=== PATIENT | female | born 1985 | race Caucasian/White ===

== ENCOUNTER → 2016-10-15 | Outpatient (REF) | payer OTHER | END | disposition home or self-care (01) | LOC: M LAB REF 10:07 | PROVIDERS: ATTEND Physician Assistant Medical | DX: Z11.59 Encounter for screening for other viral diseases (principal) ==

== ENCOUNTER → 2016-10-30 | Outpatient (REF) | payer OTHER | LOC: M SFHCPLAZ 08:57 | PROVIDERS: ATTEND Nurse Practitioner Family | DX: R19.5 Other fecal abnormalities (principal) ==

== ENCOUNTER → 2016-11-01 | Outpatient (REF) | payer OTHER | LOC: M SFHCWAGY 12:05 | PROVIDERS: ATTEND Nurse Practitioner Women's Health | DX: Z12.4 Encounter for screening for malignant neoplasm of cervix (principal) ==

== ENCOUNTER → 2016-11-06 | Outpatient (REF) | payer OTHER ==
[2016-11-06 12:56] LABS: ALBUMIN 4.2 GM/DL (3.2-5.2); ALBUMIN/GLOBULIN RATIO 1.35 (1.00-1.93); ALKALINE PHOSPHATASE 64 U/L (45-117); ALT/SGPT 29 U/L (12-78); ANION GAP 10 MEQ/L (8-16); AST/SGOT 17 U/L (15-37); BILIRUBIN,TOTAL 0.7 MG/DL (0.2-1.0); BLOOD UREA NITROGEN 8 MG/DL (7-18); CALCIUM LEVEL 9.6 MG/DL (8.5-10.1); CARBON DIOXIDE LEVEL 28 MEQ/L (21-32); CHLORIDE LEVEL 105 MEQ/L (98-107); CREATININE FOR GFR 0.68 MG/DL (0.55-1.02); GLOMERULAR FILTRATION RATE > 60.0 (>60); GLUCOSE, FASTING 92 MG/DL (70-105); POTASSIUM SERUM 4.4 MEQ/L (3.5-5.1); SODIUM LEVEL 143 MEQ/L (136-145); TOTAL PROTEIN 7.3 GM/DL (6.4-8.2)
[2016-11-06 13:03] LABS: BASO % 0.6 % (0.0-1.0); EOS % 0.6 % (0.0-3.0); LARGE UNSTAINED CELL # 0.1 K/mm3 (0.0-0.4); LARGE UNSTAINED CELL % 1.5 % (0.0-4.0); LYMPH # 1.7 K/mm3 (1.5-4.5); LYMPH % 16.8 % (24.0-44.0); MEAN CORPUSCULAR HEMOGLOBIN 29.3 pg (27.0-33.0); MEAN CORPUSCULAR HGB CONC 33.2 g/dl (32.0-36.5); MEAN CORPUSCULAR VOLUME 88.4 fl (80.0-96.0); MONO # 0.7 K/mm3 (0.0-0.8); MONO % 7.1 % (0.0-5.0); NEUTROPHILS # 6.9 K/mm3 (1.8-7.7); NEUTROPHILS % 73.5 % (36.0-66.0); PLATELET COUNT, AUTOMATED 281 k/mm3 (150-450); RED CELL DISTRIBUTION WIDTH 13.2 % (11.5-14.5); WHITE BLOOD COUNT 9.4 K/mm3 (4.0-10.0)
[2016-11-06 14:24] LABS: ERYTHROCYTE SEDIMENTATION RATE 11 mm/hr (0-20)
== END ==
LOC: M SFHCPLAZ 09:06
PROVIDERS: ATTEND Nurse Practitioner Family
DX: M25.511 Pain in right shoulder (principal)

== ENCOUNTER → 2016-11-10 | Outpatient (REF) | payer OTHER ==
[2016-11-10 11:30] LABS: INR 1.08
== END ==
LOC: M SFHCPLAZ 07:53
PROVIDERS: ATTEND Nurse Practitioner Family
DX: M25.50 Pain in unspecified joint (principal)

== ENCOUNTER 2016-11-24 21:43 | Emergency (ER) | payer OTHER ==
[2016-11-24] MEDS ORDERED: ASPIRIN 81 MG CHEW TABLET As Ordered ONE (22:06)
[2016-11-24 22:23] LABS: BASO # 0.1 K/mm3 (0.0-0.2); BASO % 0.8 % (0.0-1.0); EOS # 0.1 K/mm3 (0.0-0.50); LARGE UNSTAINED CELL # 0.2 K/mm3 (0.0-0.4); LARGE UNSTAINED CELL % 2.2 % (0.0-4.0); LYMPH # 2.3 K/mm3 (1.5-4.5); LYMPH % 21.4 % (24.0-44.0); MEAN CORPUSCULAR HEMOGLOBIN 28.8 pg (27.0-33.0); MEAN CORPUSCULAR HGB CONC 34.3 g/dl (32.0-36.5); MONO # 0.5 K/mm3 (0.0-0.8); MONO % 4.8 % (0.0-5.0); NEUTROPHILS # 7.3 K/mm3 (1.8-7.7); NEUTROPHILS % 69.8 % (36.0-66.0); PLATELET COUNT, AUTOMATED 309 k/mm3 (150-450); RED CELL DISTRIBUTION WIDTH 12.3 % (11.5-14.5); WHITE BLOOD COUNT 10.5 K/mm3 (4.0-10.0)
[2016-11-24 22:27] LABS: INR 1.05
[2016-11-24 22:36] LABS: CONTROL LINE HCG INT CTR LINE PRESENT
[2016-11-24 22:45] LABS: ANION GAP 10 MEQ/L (8-16); BLOOD UREA NITROGEN 8 MG/DL (7-18); CALCIUM LEVEL 8.9 MG/DL (8.5-10.1); CARBON DIOXIDE LEVEL 24 MEQ/L (21-32); CHLORIDE LEVEL 108 MEQ/L (98-107); CREATININE FOR GFR 0.72 MG/DL (0.55-1.02); GLOMERULAR FILTRATION RATE > 60.0 (>60); GLUCOSE, FASTING 101 MG/DL (70-105); MAGNESIUM LEVEL 1.8 MG/DL (1.8-2.4); POTASSIUM SERUM 3.2 MEQ/L (3.5-5.1); SODIUM LEVEL 142 MEQ/L (136-145); T UPTAKE 35 % (30-39); THYROXINE (T4) 9.9 UG/DL (4.5-12.0)
--- NOTE | 2016-11-24 23:54 | EDDOCDS ---
Nurse's Notes [facility] Name: Jennifer Bowie Age: 31 yrs Sex: Female : 1985 Arrival Date: 11/24/2016 Time: 21:43 Bed 13 Private MD: Eliceo Valadez MD Diagnosis: Palpitations Presentation: 11/24 21:48 Presenting complaint: Patient states: Dizziness, SOB with feeling like heart was jo3 racing. Started at approximately 2000. Happened 2 days ago as well. Pt adds that she has been having a dull chest pain intermittently. Adult Sepsis Screening: The patient does not have new or worsening altered mentation. Patient's respiratory rate is less than 22. Systolic blood pressure is greater than 100. Patient has a qSOFA score of 0- Negative Sepsis Screen. Suicide/Homicide risk assessment- the patient denies having any suicidal and/or homicidal ideations and does not present with any other emotional, behavioral or mental health complaints. Status: Patient is not a electronic field service engineer or dependent. Transition of care: patient was not received from another setting of care. 21:48 Method Of Arrival: Walkin/Carried/Asstd jo3 22:04 Acuity: DASHA Level 3 mlc Triage Assessment: 21:51 General: Appears in no apparent distress, Behavior is appropriate for age, cooperative, jo3 pleasant. Pain: Location: left, anterior chest, left neck Pain currently is 5 out of 10 on a pain scale. HIV screening NA for this visit Offered previously. 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 none - PMHx: none; - PSHx: none; - Social history: Smoking status: Patient states was never smoker of tobacco. No barriers to communication noted, The patient speaks fluent Polish, Speaks appropriately for age. - Family history: Not pertinent. - : The pt / caregiver states he / she is not on anticoagulants. Home medication list is obtained from the patient. - Exposure Risk Screening:: None identified. Screenin:17 Screening information is obtained from the patient. Fall risk: No risks identified. tm5 Assistance ADL's: requires no assistance with activities of daily living. Abuse/DV Screen: The patient / caregiver reports he/she is: not in a situation that causes fear, pain or injury. Nutritional screening: No deficits noted. Advance Directives: There is no active DNR order. home support is adequate. Assessment: 22:17 General: Appears in no apparent distress, Behavior is appropriate for age, cooperative. tm5 Pain: Location: neck Pain currently is 8 out of 10 on a pain scale. Quality of pain is described as aching, sharp. Neurological: Level of Consciousness is awake, alert, Oriented to person, place, time. Cardiovascular: Rhythm is regular. Cardiovascular: Chest pain is denied. Respiratory: Airway is patent Respiratory effort is even, unlabored, Respiratory pattern is regular, symmetrical, Breath sounds are clear bilaterally. Derm: Skin is pink, warm & dry. 23:50 Reassessment: Patient appears in no apparent distress at this time. Patient states tm5 feeling better. Patient states symptoms have improved. Cardiovascular: Rhythm is regular. Vital Signs: 21:45 BP 145 / 72; Pulse 104; Resp 18; Temp 97; Pulse Ox 100% ; Weight 58.97 kg; Height 5 ft. [facility] 6 in. (167.64 cm); Pain 5/10; 22:02 BP 121 / 62 (auto/); tm5 22:03 Pulse 78 MON; Pulse Ox 100% ; tm5 22:32 BP 118 / 63 (auto/); tm5 22:33 Pulse 70 MON; Pulse Ox 100% on R/A; tm5 23:02 BP 117 / 88 (auto/); tm5 23:02 Pulse 82 MON; Pulse Ox 99% on R/A; Pain 0/10; tm5 23:32 BP 117 / 66 (auto/); tm5 23:33 Pulse 66 MON; Resp 18; Temp 98.3(O); Pulse Ox 100% on R/A; Pain 0/10; tm5 21:45 Body Mass Index 20.98 (58.97 kg, 167.64 cm) [facility] Vitals: 21:45 Log In Time: November 24, 2016 at 21:45. [facility] ED Course: 21:44 Patient visited by Kirstie Cano, Special Tax Auditor. [facility] 21:44 Patient moved to Wait[facility] 21:45 Eliceo Valadez is Private Physician. [facility] 21:45 Patient moved to [facility] 21:52 Patient visited by Edilia Khoury RN. jo3 21:52 Edilia Anne,KEDAR is Primary Nurse. jo3 21:52 [facility] ke 21:52 Patient visited by Ford Bianchi FNP. ke 21:52 Patient visited by Ford Bianchi FNP. ke 21:52 Patient moved to 13 jo3 22:04 Triage Initiated mlc 22:15 ETOH Sent. tm5 22:15 HCG,Serum Qualitative Sent. tm5 22:15 Thyroid Profile Sent. tm5 22:15 Magnesium Level Sent. tm5 22:15 Basic Metabolic Profile Sent. tm5 22:15 CBC with Diff Sent. tm5 22:15 Cardiac Injury Profile Sent. tm5 22:15 Prothrombin Time Profile\E\INR Sent. tm5 22:15 Troponin Sent. tm5 22:17 The patient / caregiver is instructed regarding the plan of care and ED course. Cardiac tm5 monitor on. Pulse ox on. NIBP on. 22:17 Inserted saline lock: 18 gauge in left antecubital area and blood collected. The tm5 patient tolerated the procedure well. Labs drawn. (by ED staff). Sent per order to lab. EKG done. (by ED staff). Reviewed by Ford POWELL. 22:17 No procedures done that require assistance. tm5 22:23 Patient visited by Ford Bianchi FNP. ke 22:55 Patient visited by Ford Bianchi FNP. ke 23:03 Primary Nurse role handed off by Edilia Anne,KEDAR jb5 23:10 Patient visited by Melony Landeros RN. tm5 23:11 Patient name changed from Jennifer\S\\S\Gonyaw\S\ to Jennifer\S\Alizah\S\Gonyaw. EDMS 23:26 Eliceo Valadez is Referral Physician. ke 23:26 Michael Laurent MD is Referral Physician. ke 23:33 Discontinued lock intact, bleeding controlled, pressure dressing applied, No tm5 redness/swelling at site. 23:50 Patient visited by Melony Landeros RN. tm5 Administered Medications: 22:09 Drug: Aspirin 324 mg [aspirin 81 mg chewable tablet (4 tabs)] Route: PO; mlc 23:28 Follow up: Response: No Adverse Reaction tm5 22:16 Drug: NS 0.9% 1000 ml [sodium chloride 0.9 % intravenous solution] Route: IV; Rate: 100 tm5 mL/hr; Site: left antecubital; 23:29 Follow up: IV Status: Infusion discontinued; IV Intake: 200ml tm5 Intake: 23:29 IV: 200.00ml; Total: 200.00ml. tm5 Order Results: Lab Order: Basic Metabolic Profile; DAVID'M 11/24/16 22:13 Test: GLUCOSE, FASTING; Value: 101; Range: 70-105; Units: MG/DL; Status: F Test: BLOOD UREA NITROGEN; Value: 8; Range: 7-18; Units: MG/DL; Status: F Test: CREATININE FOR GFR; Value: 0.72; Range: 0.55-1.02; Units: MG/DL; Status: F Test: SODIUM LEVEL; Range: 136-145; Units: MEQ/L; Status: I Test: POTASSIUM SERUM; Range: 3.5-5.1; Units: MEQ/L; Status: I Test: CHLORIDE LEVEL; Range: 98-107; Units: MEQ/L; Status: I Test: CARBON DIOXIDE LEVEL; Range: 21-32; Units: MEQ/L; Status: I Test: ANION GAP; Range: 8-16; Units: MEQ/L; Status: I Test: CALCIUM LEVEL; Range: 8.5-10.1; Units: MG/DL; Status: I Test: GLOMERULAR FILTRATION RATE; Value: > 60.0; Range: >60; Status: F Test: SODIUM LEVEL; Value: 142; Range: 136-145; Units: MEQ/L; Status: F Test: POTASSIUM SERUM; Value: 3.2; Range: 3.5-5.1; Abnormal: Below low normal; Units: MEQ/L; Status: F Test: CHLORIDE LEVEL; Value: 108; Range: 98-107; Abnormal: Above high normal; Units: MEQ/L; Status: F Test: CARBON DIOXIDE LEVEL; Value: 24; Range: 21-32; Units: MEQ/L; Status: F Test: ANION GAP; Value: 10; Range: 8-16; Units: MEQ/L; Status: F Test: CALCIUM LEVEL; Value: 8.9; Range: 8.5-10.1; Units: MG/DL; Status: F Test Note: ; Units are mL/min/1.73 m2 Chronic Kidney Disease Staging per NKF: Stage I & II GFR >=60 Normal to Mildly Decreased Stage III GFR 30-59 Moderately Decreased Stage IV GFR 15-29 Severely Decreased Stage V GFR <15 Very Little GFR Left ESRD GFR <15 on TECHNICAL WRITING LEAD/MGR Lab Order: CBC with Diff; DAVID'Ray 11/24/16 22:13 Test: WHITE BLOOD COUNT; Value: 10.5; Range: 4.0-10.0; Abnormal: Above high normal; Units: K/mm3; Status: F Test: RED BLOOD COUNT; Value: 4.61; Range: 4.00-5.40; Units: M/mm3; Status: F Test: HEMOGLOBIN; Value: 13.3; Range: 12.0-16.0; Units: g/dl; Status: F Test: HEMATOCRIT; Value: 38.7; Range: 36.0-47.0; Units: %; Status: F Test: MEAN CORPUSCULAR VOLUME; Value: 84.0; Range: 80.0-96.0; Units: fl; Status: F Test: MEAN CORPUSCULAR HEMOGLOBIN; Value: 28.8; Range: 27.0-33.0; Units: pg; Status: F Test: MEAN CORPUSCULAR HGB CONC; Value: 34.3; Range: 32.0-36.5; Units: g/dl; Status: F Test: RED CELL DISTRIBUTION WIDTH; Value: 12.3; Range: 11.5-14.5; Units: %; Status: F Test: PLATELET COUNT, AUTOMATED; Value: 309; Range: 150-450; Units: k/mm3; Status: F Test: NEUTROPHILS %; Value: 69.8; Range: 36.0-66.0; Abnormal: Above high normal; Units: %; Status: F Test: LYMPH %; Value: 21.4; Range: 24.0-44.0; Abnormal: Below low normal; Units: %; Status: F Test: MONO %; Value: 4.8; Range: 0.0-5.0; Units: %; Status: F Test: EOS %; Value: 1.0; Range: 0.0-3.0; Units: %; Status: F Test: BASO %; Value: 0.8; Range: 0.0-1.0; Units: %; Status: F Test: LARGE UNSTAINED CELL %; Value: 2.2; Range: 0.0-4.0; Units: %; Status: F Test: NEUTROPHILS #; Value: 7.3; Range: 1.8-7.7; Units: K/mm3; Status: F Test: LYMPH #; Value: 2.3; Range: 1.5-4.5; Units: K/mm3; Status: F Test: MONO #; Value: 0.5; Range: 0.0-0.8; Units: K/mm3; Status: F Test: EOS #; Value: 0.1; Range: 0.0-0.50; Units: K/mm3; Status: F Test: BASO #; Value: 0.1; Range: 0.0-0.2; Units: K/mm3; Status: F Test: LARGE UNSTAINED CELL #; Value: 0.2; Range: 0.0-0.4; Units: K/mm3; Status: F Lab Order: Cardiac Injury Profile; SPEC' 11/24/16 22:13 Test: CPK CREATINE PHOSPHOKINASE; Value: 55; Range: 26-192; Units: U/L; Status: F Test: CK-MB VALUE MASS; Value: 1.0; Range: 0.0-3.6; Units: NG/ML; Status: F Test: MB/CK RELATIVE INDEX; Value: 1.81; Range: < OR =4; Status: F Test Note: ; DIAGNOSIS CRITERIA MMB ng/ml Relative Index (RI) NON-AMI < or = 5 N/A WISEMAN ZONE > 5 < or = 4 AMI > 5 > 4 Lab Order: Prothrombin Time Profile\E\INR; SPEC'M 11/24/16 22:13 Test: PROTHROMBIN TIME; Value: 13.8; Range: 12.3-14.5; Units: SECONDS; Status: F Test: INR; Value: 1.05; Status: F Test Note: ; THERAPUTIC HUMAN INR VALUES INDICATIONS NORMAL RANGES PROPHYLAXIS/TREATMENT OF: VENOUS THROMBOSIS 2.0-3.0 PULMONARY EMBOLISM 2.0-3.0 PREVENTION OF SYSTEMIC EMBOLISM FROM: TISSUE HEART VALVES 2.0-3.0 ACUTE MYOCARDIAL INFARCTION 2.0-3.0 VALVULAR HEART DISEASE 2.0-3.0 ATRIAL FIBRILLATION 2.0-3.0 MECHANICAL VALVES(HIGH RISK) 2.5-3.5 RECURRENT MYOCARDIAL INFARCTION 2.5-3.5 Lab Order: Troponin; [facility] 11/24/16 22:13 Test: TROPONIN I; Value: < 0.02; Range: < 0.10; Units: NG/ML; Status: F Test Note: ; Troponin I Reference Interval for [employer] LOCI: 99th Percentile= 0.00-0.045 ng/ml Risk Stratification: <= 0.10 ng/ml Decreased Risk for Adverse Clinical Events. 0.10-1.50 ng/ml Increased Risk for Adverse Clinical Events. Evaluation of additional criterion and/or repeat testing in 2-6 hours is suggested to rule out myocardial damage. >= 1.50 ng/ml Indicative of Myocardial Injury. Lab Order: Magnesium Level; [facility] 11/24/16 22:13 Test: MAGNESIUM LEVEL; Value: 1.8; Range: 1.8-2.4; Units: MG/DL; Status: F Lab Order: Thyroid Profile; [facility] 11/24/16 22:13 Test: T UPTAKE; Value: 35; Range: 30-39; Units: %; Status: F Test: THYROXINE (T4); Value: 9.9; Range: 4.5-12.0; Units: UG/DL; Status: F Test: FREE THYROXINE INDEX; Value: 3.5; Range: 1.3-4.8; Units: %; Status: F Test: THYROID STIMULATING HORMONE; Value: 2.840; Range: 0.358-3.740; Units: uIU/ML; Status: F Lab Order: HCG,Serum Qualitative; [facility] 11/24/16 22:13 Test: HCG, SERUM QUALITATIVE; Value: NEGATIVE; Range: NEGATIVE; Status: F Lab Order: ETOH; [facility] 11/24/16 22:13 Test: ETHYL ALCOHOL (ETHANOL); Value: 0.003; Range: 0.000-0.010; Units: %; Status: F Outcome: 23:26 Discharge ordered by Provider. ke 23:33 Discharge Assessment: Patient awake, alert and oriented x 3. No cognitive and/or tm5 functional deficits noted. Patient verbalized understanding of disposition instructions. patient administered narcotics - no. The following High Risk Discharge criteria are identified: None. Discharged to home ambulatory, with significant other. Condition: good Condition: stable Condition: improved. Discharge instructions given to patient, Instructed on discharge instructions, follow up and referral plans. medication usage, Demonstrated understanding of instructions, medications, Pt was receptive of discharge instructions/ teaching. Prescriptions given X 1. No special radiology studies were completed. Property :Personal belongings accompany Pt. 23:52 Patient left the ED. tm5 Signatures: Dispatcher [employer] EDMS Ford Bianchi, BRICK CARRIER BRICK CARRIER Cee Thorne, SHIP YARD ELECTRICAL PERSON SHIP YARD ELECTRICAL PERSON jb5 Edilia Khoury,RN RN Kirstie Tran, Special Tax Auditor Unit Estefania Moore,RN RN Melony Iverson,RN RN tm5 [email or web address]
--- NOTE | 2016-11-24 23:54 | EDDOCDS ---
Physician Documentation [facility] Name: Jennifer Bowie Age: 31 yrs Sex: Female : 1985 Arrival Date: 11/24/2016 Time: 21:43 Bed 13 Private MD: Eliceo Valadez MD Disposition: 11/24/16 23:26 Discharged to Home/Self Care. Impression: Palpitations. - Condition is Stable. - Discharge Instructions: Palpitations. - Medication Reconciliation, Local Pharmacy Hours form. - Follow up: Eliceo Valadez; When: 1 week; Reason: Recheck today's complaints, Continuance of care. Follow up: Michael Laurent MD; When: Call to arrange an appointment; Reason: Further diagnostic work-up, Continuance of care. - Problem is an ongoing problem. - Symptoms are unchanged. Historical: - Allergies: Flagyljoint pain; - Home Meds: 1. none - PMHx: none; - PSHx: none; - Social history: Smoking status: Patient states was never smoker of tobacco. No barriers to communication noted, The patient speaks fluent Lithuanian, Speaks appropriately for age. - Family history: Not pertinent. - : The pt / caregiver states he / she is not on anticoagulants. Home medication list is obtained from the patient. - Exposure Risk Screening:: None identified. 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 6 in. (167.64 cm); Pain 5/10; 22:02 BP 121 / 62 (auto/); tm5 22:03 Pulse 78 MON; Pulse Ox 100% ; tm5 22:32 BP 118 / 63 (auto/); tm5 22:33 Pulse 70 MON; Pulse Ox 100% on R/A; tm5 23:02 BP 117 / 88 (auto/); tm5 23:02 Pulse 82 MON; Pulse Ox 99% on R/A; Pain 0/10; tm5 23:32 BP 117 / 66 (auto/); tm5 23:33 Pulse 66 MON; Resp 18; Temp 98.3(O); Pulse Ox 100% on R/A; Pain 0/10; tm5 21:45 Body Mass Index 20.98 (58.97 kg, 167.64 cm) [facility] MDM: 21:52 ECG WITH READING ER PHYS+CARDIAG ordered. EDMS 22:00 Aspirin Chewable Tablet 324 mg PO once ordered. ke 22:00 NS 0.9% 1000 ml IV at 100 mL/hr continuous ordered. ke 22:00 Metal Spray Operator/Pulse Ox/q 30 min VS ordered. ke 22:00 IV Saline Lock ordered. ke 22:00 Rhythm Strip to chart ordered. ke 22:00 Undress patient appropriately for examination ordered. ke 22:00 Basic Metabolic Profile Ordered. EDMS 22:00 CBC with Diff Ordered. EDMS 22:00 Cardiac Injury Profile Ordered. EDMS 22:00 Prothrombin Time Profile\E\INR Ordered. EDMS 22:00 Troponin Ordered. EDMS 22:00 Magnesium Level Ordered. EDMS 22:00 Thyroid Profile Ordered. EDMS 22:00 HCG,Serum Qualitative Ordered. EDMS 22:00 Urinalysis Ordered. EDMS 22:00 Urine Toxicology Ordered. EDMS 22:00 ETOH Ordered. EDMS 22:02 Chest, 2 View (pa\E\lat) Ordered. EDMS 22:55 Basic Metabolic Profile Reviewed. ke 22:55 CBC with Diff Reviewed. ke 22:55 Cardiac Injury Profile Reviewed. ke 22:55 Prothrombin Time Profile\E\INR Reviewed. ke 22:55 Troponin Reviewed. ke 22:55 Magnesium Level Reviewed. ke 22:55 Thyroid Profile Reviewed. ke 22:55 HCG,Serum Qualitative Reviewed. ke 22:55 ETOH Reviewed. ke 23:01 Financial registration complete. kf3 Administered Medications: 22:09 Drug: Aspirin 324 mg [aspirin 81 mg chewable tablet (4 tabs)] Route: PO; mlc 23:28 Follow up: Response: No Adverse Reaction tm5 22:16 Drug: NS 0.9% 1000 ml [sodium chloride 0.9 % intravenous solution] Route: IV; Rate: 100 tm5 mL/hr; Site: left antecubital; 23:29 Follow up: IV Status: Infusion discontinued; IV Intake: 200ml tm5 Signatures: Dispatcher [employer] EDMS Ford Bianchi, ANALOG IC DESIGN ARCHITECT ANALOG IC DESIGN ARCHITECT Edilia YorkRN RN jo3 Juventino Martinez, Reg Reg kf3 Melony Landeros RN RN tm5 Estefania Martinez RN mlc FLORD
--- NOTE | 2016-11-25 07:14 | REP ---
Clinical: Chest pain . Comparison: 03/02/2016 . Technique: PA and lateral. Findings: The mediastinum and cardiac silhouette are normal. The lung ontiveros are clear and without acute consolidation, effusion, or pneumothorax. The skeletal structures are intact and normal. Impression: 1. No acute cardiopulmonary process. Signed by Ravi Caba MD 11/25/2016 07:06 A
--- NOTE | 2016-11-25 07:26 | ECGEPIP ---
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
--- NOTE | 2016-11-27 00:54 | EDDOCDS ---
Physician Documentation [facility] Name: Jennifer Bowie Age: 31 yrs Sex: Female : 1985 Arrival Date: 11/24/2016 Time: 21:43 Bed 13 Private MD: Eliceo Valadez MD Disposition: 11/24/16 23:26 Discharged to Home/Self Care. Impression: Palpitations. - Condition is Stable. - Discharge Instructions: Palpitations. - Medication Reconciliation, Local Pharmacy Hours form. - Follow up: Eliceo Valadez; When: 1 week; Reason: Recheck today's complaints, Continuance of care. Follow up: Michael Laurent MD; When: Call to arrange an appointment; Reason: Further diagnostic work-up, Continuance of care. - Problem is an ongoing problem. - Symptoms are unchanged. Historical: - Allergies: Flagyljoint pain; - Home Meds: 1. none - PMHx: none; - PSHx: none; - Social history: Smoking status: Patient states was never smoker of tobacco. No barriers to communication noted, The patient speaks fluent Gabonese, Speaks appropriately for age. - Family history: Not pertinent. - : The pt / caregiver states he / she is not on anticoagulants. Home medication list is obtained from the patient. - Exposure Risk Screening:: None identified. 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 6 in. (167.64 cm); Pain 5/10; 22:02 BP 121 / 62 (auto/); tm5 22:03 Pulse 78 MON; Pulse Ox 100% ; tm5 22:32 BP 118 / 63 (auto/); tm5 22:33 Pulse 70 MON; Pulse Ox 100% on R/A; tm5 23:02 BP 117 / 88 (auto/); tm5 23:02 Pulse 82 MON; Pulse Ox 99% on R/A; Pain 0/10; tm5 23:32 BP 117 / 66 (auto/); tm5 23:33 Pulse 66 MON; Resp 18; Temp 98.3(O); Pulse Ox 100% on R/A; Pain 0/10; tm5 21:45 Body Mass Index 20.98 (58.97 kg, 167.64 cm) [facility] MDM: 21:52 ECG WITH READING ER PHYS+CARDIAG ordered. EDMS 22:00 Aspirin Chewable Tablet 324 mg PO once ordered. ke 22:00 NS 0.9% 1000 ml IV at 100 mL/hr continuous ordered. ke 22:00 Escrow Agent/Pulse Ox/q 30 min VS ordered. ke 22:00 IV Saline Lock ordered. ke 22:00 Rhythm Strip to chart ordered. ke 22:00 Undress patient appropriately for examination ordered. ke 22:00 Basic Metabolic Profile Ordered. EDMS 22:00 CBC with Diff Ordered. EDMS 22:00 Cardiac Injury Profile Ordered. EDMS 22:00 Prothrombin Time Profile\E\INR Ordered. EDMS 22:00 Troponin Ordered. EDMS 22:00 Magnesium Level Ordered. EDMS 22:00 Thyroid Profile Ordered. EDMS 22:00 HCG,Serum Qualitative Ordered. EDMS 22:00 Urinalysis Ordered. EDMS 22:00 Urine Toxicology Ordered. EDMS 22:00 ETOH Ordered. EDMS 22:02 Chest, 2 View (pa\E\lat) Ordered. EDMS 22:55 Basic Metabolic Profile Reviewed. ke 22:55 CBC with Diff Reviewed. ke 22:55 Cardiac Injury Profile Reviewed. ke 22:55 Prothrombin Time Profile\E\INR Reviewed. ke 22:55 Troponin Reviewed. ke 22:55 Magnesium Level Reviewed. ke 22:55 Thyroid Profile Reviewed. ke 22:55 HCG,Serum Qualitative Reviewed. ke 22:55 ETOH Reviewed. ke 23:01 Financial registration complete. kf3 11/25 08:40 T-Sheet-- Draft Copy was scanned into Ritot and attached to record. [facility] 11/26 21:16 ECG/EKG was scanned into Ritot and attached to record. klr Administered Medications: 11/24 22:09 Drug: Aspirin 324 mg [aspirin 81 mg chewable tablet (4 tabs)] Route: PO; [facility] 23:28 Follow up: Response: No Adverse Reaction tm5 22:16 Drug: NS 0.9% 1000 ml [sodium chloride 0.9 % intravenous solution] Route: IV; Rate: 100 tm5 mL/hr; Site: left antecubital; 23:29 Follow up: IV Status: Infusion discontinued; IV Intake: 200ml tm5 Signatures: Dispatcher [employer] EDFord Yin, TOOL MAKER TOOL MAKER Edilia YorkRN RN jo3 Juventino Martinez, Reg Reg kf3 Mikey, Alecia Campbell, Melony Torres RN RN tm5 Estefania Martinez RN [facility] The chart was reviewed and I authenticate all verbal orders and agree with the evaluation and treatment provided.Attachments: 11/25 08:40 T-Sheet-- Draft Copy 11/26 21:16 ECG/EKG klr Chart Complete MTDD
--- NOTE | 2016-11-27 00:54 | EDDOCDS ---
Physician Documentation [employer] Name: Jennifer Bowie Age: 31 yrs Sex: Female : 1985 Arrival Date: 11/24/2016 Time: 21:43 Bed 13 Private MD: Eliceo Valadez MD Disposition: 11/24/16 23:26 Discharged to Home/Self Care. Impression: Palpitations. - Condition is Stable. - Discharge Instructions: Palpitations. - Medication Reconciliation, Local Pharmacy Hours form. - Follow up: Eliceo Valadez; When: 1 week; Reason: Recheck today's complaints, Continuance of care. Follow up: Michael Laurent MD; When: Call to arrange an appointment; Reason: Further diagnostic work-up, Continuance of care. - Problem is an ongoing problem. - Symptoms are unchanged. Historical: - Allergies: Flagyljoint pain; - Home Meds: 1. none - PMHx: none; - PSHx: none; - Social history: Smoking status: Patient states was never smoker of tobacco. No barriers to communication noted, The patient speaks fluent Armenian, Speaks appropriately for age. - Family history: Not pertinent. - : The pt / caregiver states he / she is not on anticoagulants. Home medication list is obtained from the patient. - Exposure Risk Screening:: None identified. TERMINOLOGIST: 11/24 21:51 LMP 11/08/2016 jo3 Vital Signs: 21:45 BP 145 / 72; Pulse 104; Resp 18; Temp 97; Pulse Ox 100% ; Weight 58.97 kg / 130.01 lbs; jlm Height 5 ft. 6 in. (167.64 cm); Pain 5/10; 22:02 BP 121 / 62 (auto/); tm5 22:03 Pulse 78 MON; Pulse Ox 100% ; tm5 22:32 BP 118 / 63 (auto/); tm5 22:33 Pulse 70 MON; Pulse Ox 100% on R/A; tm5 23:02 BP 117 / 88 (auto/); tm5 23:02 Pulse 82 MON; Pulse Ox 99% on R/A; Pain 0/10; tm5 23:32 BP 117 / 66 (auto/); tm5 23:33 Pulse 66 MON; Resp 18; Temp 98.3(O); Pulse Ox 100% on R/A; Pain 0/10; tm5 21:45 Body Mass Index 20.98 (58.97 kg, 167.64 cm) [facility] MDM: 21:52 ECG WITH READING ER PHYS+CARDIAG ordered. EDMS 22:00 Aspirin Chewable Tablet 324 mg PO once ordered. ke 22:00 NS 0.9% 1000 ml IV at 100 mL/hr continuous ordered. ke 22:00 License Inspector/Pulse Ox/q 30 min VS ordered. ke 22:00 IV Saline Lock ordered. ke 22:00 Rhythm Strip to chart ordered. ke 22:00 Undress patient appropriately for examination ordered. ke 22:00 Basic Metabolic Profile Ordered. EDMS 22:00 CBC with Diff Ordered. EDMS 22:00 Cardiac Injury Profile Ordered. EDMS 22:00 Prothrombin Time Profile\E\INR Ordered. EDMS 22:00 Troponin Ordered. EDMS 22:00 Magnesium Level Ordered. EDMS 22:00 Thyroid Profile Ordered. EDMS 22:00 HCG,Serum Qualitative Ordered. EDMS 22:00 Urinalysis Ordered. EDMS 22:00 Urine Toxicology Ordered. EDMS 22:00 ETOH Ordered. EDMS 22:02 Chest, 2 View (pa\E\lat) Ordered. EDMS 22:55 Basic Metabolic Profile Reviewed. ke 22:55 CBC with Diff Reviewed. ke 22:55 Cardiac Injury Profile Reviewed. ke 22:55 Prothrombin Time Profile\E\INR Reviewed. ke 22:55 Troponin Reviewed. ke 22:55 Magnesium Level Reviewed. ke 22:55 Thyroid Profile Reviewed. ke 22:55 HCG,Serum Qualitative Reviewed. ke 22:55 ETOH Reviewed. ke 23:01 Financial registration complete. kf3 11/25 08:40 T-Sheet-- Draft Copy was scanned into [employer] and attached to record. [facility] 11/26 21:16 ECG/EKG was scanned into [employer] and attached to record. klr Administered Medications: 11/24 22:09 Drug: Aspirin 324 mg [aspirin 81 mg chewable tablet (4 tabs)] Route: PO; [facility] 23:28 Follow up: Response: No Adverse Reaction tm5 22:16 Drug: NS 0.9% 1000 ml [sodium chloride 0.9 % intravenous solution] Route: IV; Rate: 100 tm5 mL/hr; Site: left antecubital; 23:29 Follow up: IV Status: Infusion discontinued; IV Intake: 200ml tm5 Signatures: Dispatcher [employer] EDFord Yin, AIRCRAFT MACHINIST HELPER AIRCRAFT MACHINIST HELPER Edilia YorkRN RN jo3 Juventino Martinez, Reg Reg kf3 Mikey, Alecia Campbell, Melony Torres RN RN tm5 Estefania Martinez RN [facility] The chart was reviewed and I authenticate all verbal orders and agree with the evaluation and treatment provided.Attachments: 11/25 08:40 T-Sheet-- Draft Copy 11/26 21:16 ECG/EKG klr Chart Complete MTDD
--- NOTE | 2016-11-27 00:54 | EDDOCDS ---
Nurse's Notes [facility] Name: Alfredo Bowie Age: 31 yrs Sex: Female : 1985 Arrival Date: 11/24/2016 Time: 21:43 Bed 13 Private MD: Eliceo Valadez MD Diagnosis: Palpitations Presentation: 11/24 21:48 Presenting complaint: Patient states: Dizziness, SOB with feeling like heart was jo3 racing. Started at approximately 2000. Happened 2 days ago as well. Pt adds that she has been having a dull chest pain intermittently. Adult Sepsis Screening: The patient does not have new or worsening altered mentation. Patient's respiratory rate is less than 22. Systolic blood pressure is greater than 100. Patient has a qSOFA score of 0- Negative Sepsis Screen. Suicide/Homicide risk assessment- the patient denies having any suicidal and/or homicidal ideations and does not present with any other emotional, behavioral or mental health complaints. Status: Patient is not a pharmacy services representative or dependent. Transition of care: patient was not received from another setting of care. 21:48 Method Of Arrival: Walkin/Carried/Asstd jo3 22:04 Acuity: DASHA Level 3 mlc Triage Assessment: 21:51 General: Appears in no apparent distress, Behavior is appropriate for age, cooperative, jo3 pleasant. Pain: Location: left, anterior chest, left neck Pain currently is 5 out of 10 on a pain scale. HIV screening NA for this visit Offered previously. ENVIRONMENT FRIENDLY LANDSCAPE DESIGNER: 21:51 LMP 11/08/2016 jo3 Historical: - Allergies: Flagyljoint pain; - Home Meds: 1. none - PMHx: none; - PSHx: none; - Social history: Smoking status: Patient states was never smoker of tobacco. No barriers to communication noted, The patient speaks fluent Urdu, Speaks appropriately for age. - Family history: Not pertinent. - : The pt / caregiver states he / she is not on anticoagulants. Home medication list is obtained from the patient. - Exposure Risk Screening:: None identified. Screenin:17 Screening information is obtained from the patient. Fall risk: No risks identified. tm5 Assistance ADL's: requires no assistance with activities of daily living. Abuse/DV Screen: The patient / caregiver reports he/she is: not in a situation that causes fear, pain or injury. Nutritional screening: No deficits noted. Advance Directives: There is no active DNR order. home support is adequate. Assessment: 22:17 General: Appears in no apparent distress, Behavior is appropriate for age, cooperative. tm5 Pain: Location: neck Pain currently is 8 out of 10 on a pain scale. Quality of pain is described as aching, sharp. Neurological: Level of Consciousness is awake, alert, Oriented to person, place, time. Cardiovascular: Rhythm is regular. Cardiovascular: Chest pain is denied. Respiratory: Airway is patent Respiratory effort is even, unlabored, Respiratory pattern is regular, symmetrical, Breath sounds are clear bilaterally. Derm: Skin is pink, warm & dry. 23:50 Reassessment: Patient appears in no apparent distress at this time. Patient states tm5 feeling better. Patient states symptoms have improved. Cardiovascular: Rhythm is regular. Vital Signs: 21:45 BP 145 / 72; Pulse 104; Resp 18; Temp 97; Pulse Ox 100% ; Weight 58.97 kg; Height 5 ft. [facility] 6 in. (167.64 cm); Pain 5/10; 22:02 BP 121 / 62 (auto/); tm5 22:03 Pulse 78 MON; Pulse Ox 100% ; tm5 22:32 BP 118 / 63 (auto/); tm5 22:33 Pulse 70 MON; Pulse Ox 100% on R/A; tm5 23:02 BP 117 / 88 (auto/); tm5 23:02 Pulse 82 MON; Pulse Ox 99% on R/A; Pain 0/10; tm5 23:32 BP 117 / 66 (auto/); tm5 23:33 Pulse 66 MON; Resp 18; Temp 98.3(O); Pulse Ox 100% on R/A; Pain 0/10; tm5 21:45 Body Mass Index 20.98 (58.97 kg, 167.64 cm) [facility] Vitals: 21:45 Log In Time: November 24, 2016 at 21:45. [facility] ED Course: 21:44 Patient visited by Kirstie Cano, Tenant Selector. [facility] 21:44 Patient moved to Waiting [facility] 21:45 Eliceo Valadez is Private Physician. [facility] 21:45 Patient moved to Pre RCE [facility] 21:52 Patient visited by Edilia Khoury RN. jo3 21:52 Edilia Anne,KEDAR is Primary Nurse. jo3 21:52 [facility] ke 21:52 Patient visited by Ford Bianchi FNP. ke 21:52 Patient visited by Ford Bianchi FNP. ke 21:52 Patient moved to 13 jo3 22:04 Triage Initiated mlc 22:15 ETOH Sent. tm5 22:15 HCG,Serum Qualitative Sent. tm5 22:15 Thyroid Profile Sent. tm5 22:15 Magnesium Level Sent. tm5 22:15 Basic Metabolic Profile Sent. tm5 22:15 CBC with Diff Sent. tm5 22:15 Cardiac Injury Profile Sent. tm5 22:15 Prothrombin Time Profile\E\INR Sent. tm5 22:15 Troponin Sent. tm5 22:17 The patient / caregiver is instructed regarding the plan of care and ED course. Cardiac tm5 monitor on. Pulse ox on. NIBP on. 22:17 Inserted saline lock: 18 gauge in left antecubital area and blood collected. The tm5 patient tolerated the procedure well. Labs drawn. (by ED staff). Sent per order to lab. EKG done. (by ED staff). Reviewed by Ford POWELL. 22:17 No procedures done that require assistance. tm5 22:23 Patient visited by Ford Bianchi FNP. ke 22:55 Patient visited by Ford Bianchi FNP. ke 23:03 Primary Nurse role handed off by Edilia Anne RN jb5 23:10 Patient visited by Melony Landeros RN. tm5 23:11 Patient name changed from Alfredo\S\\S\Gonyaw\S\ to Alfredo\S\Alizah\S\Gonyaw. EDMS 23:26 Eliceo Valadez is Referral Physician. ke 23:26 Michael Laurent MD is Referral Physician. ke 23:33 Discontinued lock intact, bleeding controlled, pressure dressing applied, No tm5 redness/swelling at site. 23:50 Patient visited by Melony Landeros RN. tm5 11/25 07:31 EKG-ADULT Returned. EDMS 07:34 Chest, 2 View (pa\E\lat) Returned. EDMS 08:40 T-Sheet-- Draft Copy was scanned into [employer] and attached to record. [facility] 11/26 21:16 ECG/EKG was scanned into [employer] and attached to record. klr Administered Medications: 11/24 22:09 Drug: Aspirin 324 mg [aspirin 81 mg chewable tablet (4 tabs)] Route: PO; [facility] 23:28 Follow up: Response: No Adverse Reaction tm5 22:16 Drug: NS 0.9% 1000 ml [sodium chloride 0.9 % intravenous solution] Route: IV; Rate: 100 tm5 mL/hr; Site: left antecubital; 23:29 Follow up: IV Status: Infusion discontinued; IV Intake: 200ml tm5 Intake: 23:29 IV: 200.00ml; Total: 200.00ml. tm5 Order Results: Lab Order: Basic Metabolic Profile; [facility]'Ray 11/24/16 22:13 Test: GLUCOSE, FASTING; Value: 101; Range: 70-105; Units: MG/DL; Status: F Test: BLOOD UREA NITROGEN; Value: 8; Range: 7-18; Units: MG/DL; Status: F Test: CREATININE FOR GFR; Value: 0.72; Range: 0.55-1.02; Units: MG/DL; Status: F Test: SODIUM LEVEL; Range: 136-145; Units: MEQ/L; Status: I Test: POTASSIUM SERUM; Range: 3.5-5.1; Units: MEQ/L; Status: I Test: CHLORIDE LEVEL; Range: 98-107; Units: MEQ/L; Status: I Test: CARBON DIOXIDE LEVEL; Range: 21-32; Units: MEQ/L; Status: I Test: ANION GAP; Range: 8-16; Units: MEQ/L; Status: I Test: CALCIUM LEVEL; Range: 8.5-10.1; Units: MG/DL; Status: I Test: GLOMERULAR FILTRATION RATE; Value: > 60.0; Range: >60; Status: F Test: SODIUM LEVEL; Value: 142; Range: 136-145; Units: MEQ/L; Status: F Test: POTASSIUM SERUM; Value: 3.2; Range: 3.5-5.1; Abnormal: Below low normal; Units: MEQ/L; Status: F Test: CHLORIDE LEVEL; Value: 108; Range: 98-107; Abnormal: Above high normal; Units: MEQ/L; Status: F Test: CARBON DIOXIDE LEVEL; Value: 24; Range: 21-32; Units: MEQ/L; Status: F Test: ANION GAP; Value: 10; Range: 8-16; Units: MEQ/L; Status: F Test: CALCIUM LEVEL; Value: 8.9; Range: 8.5-10.1; Units: MG/DL; Status: F Test Note: ; Units are mL/min/1.73 m2 Chronic Kidney Disease Staging per NKF: Stage I & II GFR >=60 Normal to Mildly Decreased Stage III GFR 30-59 Moderately Decreased Stage IV GFR 15-29 Severely Decreased Stage V GFR <15 Very Little GFR Left ESRD GFR <15 on BELL CLERK Lab Order: CBC with Diff; SPEC'M 11/24/16 22:13 Test: WHITE BLOOD COUNT; Value: 10.5; Range: 4.0-10.0; Abnormal: Above high normal; Units: K/mm3; Status: F Test: RED BLOOD COUNT; Value: 4.61; Range: 4.00-5.40; Units: M/mm3; Status: F Test: HEMOGLOBIN; Value: 13.3; Range: 12.0-16.0; Units: g/dl; Status: F Test: HEMATOCRIT; Value: 38.7; Range: 36.0-47.0; Units: %; Status: F Test: MEAN CORPUSCULAR VOLUME; Value: 84.0; Range: 80.0-96.0; Units: fl; Status: F Test: MEAN CORPUSCULAR HEMOGLOBIN; Value: 28.8; Range: 27.0-33.0; Units: pg; Status: F Test: MEAN CORPUSCULAR HGB CONC; Value: 34.3; Range: 32.0-36.5; Units: g/dl; Status: F Test: RED CELL DISTRIBUTION WIDTH; Value: 12.3; Range: 11.5-14.5; Units: %; Status: F Test: PLATELET COUNT, AUTOMATED; Value: 309; Range: 150-450; Units: k/mm3; Status: F Test: NEUTROPHILS %; Value: 69.8; Range: 36.0-66.0; Abnormal: Above high normal; Units: %; Status: F Test: LYMPH %; Value: 21.4; Range: 24.0-44.0; Abnormal: Below low normal; Units: %; Status: F Test: MONO %; Value: 4.8; Range: 0.0-5.0; Units: %; Status: F Test: EOS %; Value: 1.0; Range: 0.0-3.0; Units: %; Status: F Test: BASO %; Value: 0.8; Range: 0.0-1.0; Units: %; Status: F Test: LARGE UNSTAINED CELL %; Value: 2.2; Range: 0.0-4.0; Units: %; Status: F Test: NEUTROPHILS #; Value: 7.3; Range: 1.8-7.7; Units: K/mm3; Status: F Test: LYMPH #; Value: 2.3; Range: 1.5-4.5; Units: K/mm3; Status: F Test: MONO #; Value: 0.5; Range: 0.0-0.8; Units: K/mm3; Status: F Test: EOS #; Value: 0.1; Range: 0.0-0.50; Units: K/mm3; Status: F Test: BASO #; Value: 0.1; Range: 0.0-0.2; Units: K/mm3; Status: F Test: LARGE UNSTAINED CELL #; Value: 0.2; Range: 0.0-0.4; Units: K/mm3; Status: F Lab Order: Cardiac Injury Profile; SPEC' 11/24/16 22:13 Test: CPK CREATINE PHOSPHOKINASE; Value: 55; Range: 26-192; Units: U/L; Status: F Test: CK-MB VALUE MASS; Value: 1.0; Range: 0.0-3.6; Units: NG/ML; Status: F Test: MB/CK RELATIVE INDEX; Value: 1.81; Range: < OR =4; Status: F Test Note: ; DIAGNOSIS CRITERIA MMB ng/ml Relative Index (RI) NON-AMI < or = 5 N/A WISEMAN ZONE > 5 < or = 4 AMI > 5 > 4 Lab Order: Prothrombin Time Profile\E\INR; SPEC'M 11/24/16 22:13 Test: PROTHROMBIN TIME; Value: 13.8; Range: 12.3-14.5; Units: SECONDS; Status: F Test: INR; Value: 1.05; Status: F Test Note: ; THERAPUTIC HUMAN INR VALUES INDICATIONS NORMAL RANGES PROPHYLAXIS/TREATMENT OF: VENOUS THROMBOSIS 2.0-3.0 PULMONARY EMBOLISM 2.0-3.0 PREVENTION OF SYSTEMIC EMBOLISM FROM: TISSUE HEART VALVES 2.0-3.0 ACUTE MYOCARDIAL INFARCTION 2.0-3.0 VALVULAR HEART DISEASE 2.0-3.0 ATRIAL FIBRILLATION 2.0-3.0 MECHANICAL VALVES(HIGH RISK) 2.5-3.5 RECURRENT MYOCARDIAL INFARCTION 2.5-3.5 Lab Order: Troponin; 11/24/16 22:13 Test: TROPONIN I; Value: < 0.02; Range: < 0.10; Units: NG/ML; Status: F Test Note: ; Troponin I Reference Interval for [employer] LOCI: 99th Percentile= 0.00-0.045 ng/ml Risk Stratification: <= 0.10 ng/ml Decreased Risk for Adverse Clinical Events. 0.10-1.50 ng/ml Increased Risk for Adverse Clinical Events. Evaluation of additional criterion and/or repeat testing in 2-6 hours is suggested to rule out myocardial damage. >= 1.50 ng/ml Indicative of Myocardial Injury. Lab Order: Magnesium Level; 11/24/16 22:13 Test: MAGNESIUM LEVEL; Value: 1.8; Range: 1.8-2.4; Units: MG/DL; Status: F Lab Order: Thyroid Profile; [facility]11/[facility] 22:13 Test: T UPTAKE; Value: 35; Range: 30-39; Units: %; Status: F Test: THYROXINE (T4); Value: 9.9; Range: 4.5-12.0; Units: UG/DL; Status: F Test: FREE THYROXINE INDEX; Value: 3.5; Range: 1.3-4.8; Units: %; Status: F Test: THYROID STIMULATING HORMONE; Value: 2.840; Range: 0.358-3.740; Units: uIU/ML; Status: F Lab Order: HCG,Serum Qualitative; 11/24/16 22:13 Test: HCG, SERUM QUALITATIVE; Value: NEGATIVE; Range: NEGATIVE; Status: F Lab Order: ETOH; /24/17 22:13 Test: ETHYL ALCOHOL (ETHANOL); Value: 0.003; Range: 0.000-0.010; Units: %; Status: F Radiology Order: EKG-ADULT Test: EKG-ADULT REASON FOR EXAMINATION: Chest Pain; Stationary ECG Study; [facility] - ED; ; Test Date: 2016-11-24; Pat Name: ALFREDO BOWIE Department:; Room: -; Gender: F Mailroom Manager: zora; : 1985 Requested By: TONYA BELL; Order Number: [id number] Reading MD: Eliel Bradley; Measurements; Intervals [place]; Rate: 79 P: 47; DC: 152 QRS: 18; QRSD: 88 T: 40; QT: 379; QTc: 435; Interpretive Statements; SINUS RHYTHM; ; Electronically Signed On 11-25-2016 7:26:29 EST by Eliel Bradley; Radiology Order: Chest, 2 View (pa\E\lat) Test: Chest, 2 View (pa\E\lat) REASON FOR EXAMINATION: Chest Pain; Clinical: Chest pain .; ; Comparison: 03/02/2016 .; ; Technique: PA and lateral.; ; Findings:; The mediastinum and cardiac silhouette are normal. The lung ontiveros are clear and; without acute consolidation, effusion, or pneumothorax. The skeletal structures; are intact and normal.; ; Impression:; 1. No acute cardiopulmonary process.; ; ; Signed by; Ravi Caba MD 11/25/2016 07:06 A; Outcome: 23:26 Discharge ordered by Provider. ke 23:33 Discharge Assessment: Patient awake, alert and oriented x 3. No cognitive and/or tm5 functional deficits noted. Patient verbalized understanding of disposition instructions. patient administered narcotics - no. The following High Risk Discharge criteria are identified: None. Discharged to home ambulatory, with significant other. Condition: good Condition: stable Condition: improved. Discharge instructions given to patient, Instructed on discharge instructions, follow up and referral plans. medication usage, Demonstrated understanding of instructions, medications, Pt was receptive of discharge instructions/ teaching. Prescriptions given X 1. No special radiology studies were completed. Property :Personal belongings accompany Pt. 23:52 Patient left the ED. tm5 Signatures: Dispatcher [employer] EDMS Elsner, Ford, ELECTROCARDIOGRAM TECHNICIAN ELECTROCARDIOGRAM TECHNICIAN miesha Steinberg, Cee, VOTATOR MACHINE OPERATOR VOTATOR MACHINE OPERATOR jb5 Edilia Khoury,RN RN jo3 Kirstie Cano, Tenant Selector Unit Estefania Moore,RN RN [facility] Mikey, Alecia Campbell, Melony Torres,RN RN tm5 Chart Complete MTDD
--- NOTE | 2016-11-27 17:11 | EDDOCDS ---
Nurse's Notes [facility] Name: Alfredo Bowie Age: 31 yrs Sex: Female : 1985 Arrival Date: 11/24/2016 Time: 21:43 Bed 13 Private MD: Eliceo Valadez MD Diagnosis: Palpitations Presentation: 11/24 21:48 Presenting complaint: Patient states: Dizziness, SOB with feeling like heart was jo3 racing. Started at approximately 2000. Happened 2 days ago as well. Pt adds that she has been having a dull chest pain intermittently. Adult Sepsis Screening: The patient does not have new or worsening altered mentation. Patient's respiratory rate is less than 22. Systolic blood pressure is greater than 100. Patient has a qSOFA score of 0- Negative Sepsis Screen. Suicide/Homicide risk assessment- the patient denies having any suicidal and/or homicidal ideations and does not present with any other emotional, behavioral or mental health complaints. Status: Patient is not a field service representative or dependent. Transition of care: patient was not received from another setting of care. 21:48 Method Of Arrival: Walkin/Carried/Asstd jo3 22:04 Acuity: DASHA Level 3 mlc Triage Assessment: 21:51 General: Appears in no apparent distress, Behavior is appropriate for age, cooperative, jo3 pleasant. Pain: Location: left, anterior chest, left neck Pain currently is 5 out of 10 on a pain scale. HIV screening NA for this visit Offered previously. 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 none - PMHx: none; - PSHx: none; - Social history: Smoking status: Patient states was never smoker of tobacco. No barriers to communication noted, The patient speaks fluent German, Speaks appropriately for age. - Family history: Not pertinent. - : The pt / caregiver states he / she is not on anticoagulants. Home medication list is obtained from the patient. - Exposure Risk Screening:: None identified. Screenin:17 Screening information is obtained from the patient. Fall risk: No risks identified. tm5 Assistance ADL's: requires no assistance with activities of daily living. Abuse/DV Screen: The patient / caregiver reports he/she is: not in a situation that causes fear, pain or injury. Nutritional screening: No deficits noted. Advance Directives: There is no active DNR order. home support is adequate. Assessment: 22:17 General: Appears in no apparent distress, Behavior is appropriate for age, cooperative. tm5 Pain: Location: neck Pain currently is 8 out of 10 on a pain scale. Quality of pain is described as aching, sharp. Neurological: Level of Consciousness is awake, alert, Oriented to person, place, time. Cardiovascular: Rhythm is regular. Cardiovascular: Chest pain is denied. Respiratory: Airway is patent Respiratory effort is even, unlabored, Respiratory pattern is regular, symmetrical, Breath sounds are clear bilaterally. Derm: Skin is pink, warm & dry. 23:50 Reassessment: Patient appears in no apparent distress at this time. Patient states tm5 feeling better. Patient states symptoms have improved. Cardiovascular: Rhythm is regular. Vital Signs: 21:45 BP 145 / 72; Pulse 104; Resp 18; Temp 97; Pulse Ox 100% ; Weight 58.97 kg; Height 5 ft. [facility] 6 in. (167.64 cm); Pain 5/10; 22:02 BP 121 / 62 (auto/); tm5 22:03 Pulse 78 MON; Pulse Ox 100% ; tm5 22:32 BP 118 / 63 (auto/); tm5 22:33 Pulse 70 MON; Pulse Ox 100% on R/A; tm5 23:02 BP 117 / 88 (auto/); tm5 23:02 Pulse 82 MON; Pulse Ox 99% on R/A; Pain 0/10; tm5 23:32 BP 117 / 66 (auto/); tm5 23:33 Pulse 66 MON; Resp 18; Temp 98.3(O); Pulse Ox 100% on R/A; Pain 0/10; tm5 21:45 Body Mass Index 20.98 (58.97 kg, 167.64 cm) [facility] Vitals: 21:45 Log In Time: November 24, 2016 at 21:45. [facility] ED Course: 21:44 Patient visited by Kirstie Cano, Geochemistry Teacher. [facility] 21:44 Patient moved to Waiting [facility] 21:45 Eliceo Valadez is Private Physician. [facility] 21:45 Patient moved to Pre RCE [facility] 21:52 Patient visited by Edilia Khoury RN. jo3 21:52 Edilia Anne,KEDAR is Primary Nurse. jo3 21:52 Ford Bianchi FNP [facility]. ke 21:52 Patient visited by Ford Bianchi FNP. ke 21:52 Patient visited by Ford Bianchi FNP. ke 21:52 Patient moved to 13 jo3 22:04 Triage Initiated mlc 22:15 ETOH Sent. tm5 22:15 HCG,Serum Qualitative Sent. tm5 22:15 Thyroid Profile Sent. tm5 22:15 Magnesium Level Sent. tm5 22:15 Basic Metabolic Profile Sent. tm5 22:15 CBC with Diff Sent. tm5 22:15 Cardiac Injury Profile Sent. tm5 22:15 Prothrombin Time Profile\E\INR Sent. tm5 22:15 Troponin Sent. tm5 22:17 The patient / caregiver is instructed regarding the plan of care and ED course. Cardiac tm5 monitor on. Pulse ox on. NIBP on. 22:17 Inserted saline lock: 18 gauge in left antecubital area and blood collected. The tm5 patient tolerated the procedure well. Labs drawn. (by ED staff). Sent per order to lab. EKG done. (by ED staff). Reviewed by Ford POWELL. 22:17 No procedures done that require assistance. tm5 22:23 Patient visited by Ford Bianchi FNP. ke 22:55 Patient visited by Ford Bianchi FNP. ke 23:03 Primary Nurse role handed off by Edilia Anne RN jb5 23:10 Patient visited by Melony Landeros RN. tm5 23:11 Patient name changed from Alfredo\S\\S\Gonyaw\S\ to Alfredo\S\Alizah\S\Gonyaw. EDMS 23:26 Eliceo Valadez is Referral Physician. ke 23:26 Michael Laurent MD is Referral Physician. ke 23:33 Discontinued lock intact, bleeding controlled, pressure dressing applied, No tm5 redness/swelling at site. 23:50 Patient visited by Melony Landeros RN. tm5 11/25 07:31 EKG-ADULT Returned. EDMS 07:34 Chest, 2 View (pa\E\lat) Returned. EDMS 08:40 T-Sheet-- Draft Copy was scanned into [employer] and attached to record. [facility] 11/26 21:16 ECG/EKG was scanned into [employer] and attached to record. klr Administered Medications: 11/24 22:09 Drug: Aspirin 324 mg [aspirin 81 mg chewable tablet (4 tabs)] Route: PO; [facility] [place] 23:28 Follow up: Response: No Adverse Reaction tm5 22:16 Drug: NS 0.9% 1000 ml [sodium chloride 0.9 % intravenous solution] Route: IV; Rate: 100 tm5 mL/hr; Site: left antecubital; 23:29 Follow up: IV Status: Infusion discontinued; IV Intake: 200ml tm5 Intake: 23:29 IV: 200.00ml; Total: 200.00ml. tm5 Order Results: Lab Order: Basic Metabolic Profile; [facility]'Ray 11/24/16 22:13 Test: GLUCOSE, FASTING; Value: 101; Range: 70-105; Units: MG/DL; Status: F Test: BLOOD UREA NITROGEN; Value: 8; Range: 7-18; Units: MG/DL; Status: F Test: CREATININE FOR GFR; Value: 0.72; Range: 0.55-1.02; Units: MG/DL; Status: F Test: SODIUM LEVEL; Range: 136-145; Units: MEQ/L; Status: I Test: POTASSIUM SERUM; Range: 3.5-5.1; Units: MEQ/L; Status: I Test: CHLORIDE LEVEL; Range: 98-107; Units: MEQ/L; Status: I Test: CARBON DIOXIDE LEVEL; Range: 21-32; Units: MEQ/L; Status: I Test: ANION GAP; Range: 8-16; Units: MEQ/L; Status: I Test: CALCIUM LEVEL; Range: 8.5-10.1; Units: MG/DL; Status: I Test: GLOMERULAR FILTRATION RATE; Value: > 60.0; Range: >60; Status: F Test: SODIUM LEVEL; Value: 142; Range: 136-145; Units: MEQ/L; Status: F Test: POTASSIUM SERUM; Value: 3.2; Range: 3.5-5.1; Abnormal: Below low normal; Units: MEQ/L; Status: F Test: CHLORIDE LEVEL; Value: 108; Range: 98-107; Abnormal: Above high normal; Units: MEQ/L; Status: F Test: CARBON DIOXIDE LEVEL; Value: 24; Range: 21-32; Units: MEQ/L; Status: F Test: ANION GAP; Value: 10; Range: 8-16; Units: MEQ/L; Status: F Test: CALCIUM LEVEL; Value: 8.9; Range: 8.5-10.1; Units: MG/DL; Status: F Test Note: ; Units are mL/min/1.73 m2 Chronic Kidney Disease Staging per NKF: Stage I & II GFR >=60 Normal to Mildly Decreased Stage III GFR 30-59 Moderately Decreased Stage IV GFR 15-29 Severely Decreased Stage V GFR <15 Very Little GFR Left ESRD GFR <15 on [employer] Lab Order: CBC with Diff; SPEC'M 11/24/16 22:13 Test: WHITE BLOOD COUNT; Value: 10.5; Range: 4.0-10.0; Abnormal: Above high normal; Units: K/mm3; Status: F Test: RED BLOOD COUNT; Value: 4.61; Range: 4.00-5.40; Units: M/mm3; Status: F Test: HEMOGLOBIN; Value: 13.3; Range: 12.0-16.0; Units: g/dl; Status: F Test: HEMATOCRIT; Value: 38.7; Range: 36.0-47.0; Units: %; Status: F Test: MEAN CORPUSCULAR VOLUME; Value: 84.0; Range: 80.0-96.0; Units: fl; Status: F Test: MEAN CORPUSCULAR HEMOGLOBIN; Value: 28.8; Range: 27.0-33.0; Units: pg; Status: F Test: MEAN CORPUSCULAR HGB CONC; Value: 34.3; Range: 32.0-36.5; Units: g/dl; Status: F Test: RED CELL DISTRIBUTION WIDTH; Value: 12.3; Range: 11.5-14.5; Units: %; Status: F Test: PLATELET COUNT, AUTOMATED; Value: 309; Range: 150-450; Units: k/mm3; Status: F Test: NEUTROPHILS %; Value: 69.8; Range: 36.0-66.0; Abnormal: Above high normal; Units: %; Status: F Test: LYMPH %; Value: 21.4; Range: 24.0-44.0; Abnormal: Below low normal; Units: %; Status: F Test: MONO %; Value: 4.8; Range: 0.0-5.0; Units: %; Status: F Test: EOS %; Value: 1.0; Range: 0.0-3.0; Units: %; Status: F Test: BASO %; Value: 0.8; Range: 0.0-1.0; Units: %; Status: F Test: LARGE UNSTAINED CELL %; Value: 2.2; Range: 0.0-4.0; Units: %; Status: F Test: NEUTROPHILS #; Value: 7.3; Range: 1.8-7.7; Units: K/mm3; Status: F Test: LYMPH #; Value: 2.3; Range: 1.5-4.5; Units: K/mm3; Status: F Test: MONO #; Value: 0.5; Range: 0.0-0.8; Units: K/mm3; Status: F Test: EOS #; Value: 0.1; Range: 0.0-0.50; Units: K/mm3; Status: F Test: BASO #; Value: 0.1; Range: 0.0-0.2; Units: K/mm3; Status: F Test: LARGE UNSTAINED CELL #; Value: 0.2; Range: 0.0-0.4; Units: K/mm3; Status: F Lab Order: Cardiac Injury Profile; SPEC' 11/24/16 22:13 Test: CPK CREATINE PHOSPHOKINASE; Value: 55; Range: 26-192; Units: U/L; Status: F Test: CK-MB VALUE MASS; Value: 1.0; Range: 0.0-3.6; Units: NG/ML; Status: F Test: MB/CK RELATIVE INDEX; Value: 1.81; Range: < OR =4; Status: F Test Note: ; DIAGNOSIS CRITERIA MMB ng/ml Relative Index (RI) NON-AMI < or = 5 N/A WISEMAN ZONE > 5 < or = 4 AMI > 5 > 4 Lab Order: Prothrombin Time Profile\E\INR; SPEC'M 11/24/16 22:13 Test: PROTHROMBIN TIME; Value: 13.8; Range: 12.3-14.5; Units: SECONDS; Status: F Test: INR; Value: 1.05; Status: F Test Note: ; THERAPUTIC HUMAN INR VALUES INDICATIONS NORMAL RANGES PROPHYLAXIS/TREATMENT OF: VENOUS THROMBOSIS 2.0-3.0 PULMONARY EMBOLISM 2.0-3.0 PREVENTION OF SYSTEMIC EMBOLISM FROM: TISSUE HEART VALVES 2.0-3.0 ACUTE MYOCARDIAL INFARCTION 2.0-3.0 VALVULAR HEART DISEASE 2.0-3.0 ATRIAL FIBRILLATION 2.0-3.0 MECHANICAL VALVES(HIGH RISK) 2.5-3.5 RECURRENT MYOCARDIAL INFARCTION 2.5-3.5 Lab Order: Troponin; 11/24/16 22:13 Test: TROPONIN I; Value: < 0.02; Range: < 0.10; Units: NG/ML; Status: F Test Note: ; Troponin I Reference Interval for [employer] LOCI: 99th Percentile= 0.00-0.045 ng/ml Risk Stratification: <= 0.10 ng/ml Decreased Risk for Adverse Clinical Events. 0.10-1.50 ng/ml Increased Risk for Adverse Clinical Events. Evaluation of additional criterion and/or repeat testing in 2-6 hours is suggested to rule out myocardial damage. >= 1.50 ng/ml Indicative of Myocardial Injury. Lab Order: Magnesium Level; 11/24/16 22:13 Test: MAGNESIUM LEVEL; Value: 1.8; Range: 1.8-2.4; Units: MG/DL; Status: F Lab Order: Thyroid Profile; [facility]11/24/16 22:13 Test: T UPTAKE; Value: 35; Range: 30-39; Units: %; Status: F Test: THYROXINE (T4); Value: 9.9; Range: 4.5-12.0; Units: UG/DL; Status: F Test: FREE THYROXINE INDEX; Value: 3.5; Range: 1.3-4.8; Units: %; Status: F Test: THYROID STIMULATING HORMONE; Value: 2.840; Range: 0.358-3.740; Units: uIU/ML; Status: F Lab Order: HCG,Serum Qualitative; 11/24/16 22:13 Test: HCG, SERUM QUALITATIVE; Value: NEGATIVE; Range: NEGATIVE; Status: F Lab Order: ETOH; /24/17 22:13 Test: ETHYL ALCOHOL (ETHANOL); Value: 0.003; Range: 0.000-0.010; Units: %; Status: F Radiology Order: EKG-ADULT Test: EKG-ADULT REASON FOR EXAMINATION: Chest Pain; Stationary ECG Study; [facility] - ED; ; Test Date: 2016-11-24; Pat Name: ALFREDO BOWIE Department:; Room: -; Gender: F General Internal Medicine Physician: zora; : 1985 Requested By: TONYA BELL; Order Number: [id number] Reading MD: Eliel Bradley; Measurements; Intervals [place]; Rate: 79 P: 47; NJ: 152 QRS: 18; QRSD: 88 T: 40; QT: 379; QTc: 435; Interpretive Statements; SINUS RHYTHM; ; Electronically Signed On 11-25-2016 7:26:29 EST by Eliel Bradley; Radiology Order: Chest, 2 View (pa\E\lat) Test: Chest, 2 View (pa\E\lat) REASON FOR EXAMINATION: Chest Pain; Clinical: Chest pain .; ; Comparison: 03/02/2016 .; ; Technique: PA and lateral.; ; Findings:; The mediastinum and cardiac silhouette are normal. The lung ontiveros are clear and; without acute consolidation, effusion, or pneumothorax. The skeletal structures; are intact and normal.; ; Impression:; 1. No acute cardiopulmonary process.; ; ; Signed by; Ravi Caba MD 11/25/2016 07:06 A; Outcome: 23:26 Discharge ordered by Provider. ke 23:33 Discharge Assessment: Patient awake, alert and oriented x 3. No cognitive and/or tm5 functional deficits noted. Patient verbalized understanding of disposition instructions. patient administered narcotics - no. The following High Risk Discharge criteria are identified: None. Discharged to home ambulatory, with significant other. Condition: good Condition: stable Condition: improved. Discharge instructions given to patient, Instructed on discharge instructions, follow up and referral plans. medication usage, Demonstrated understanding of instructions, medications, Pt was receptive of discharge instructions/ teaching. Prescriptions given X 1. No special radiology studies were completed. Property :Personal belongings accompany Pt. 23:52 Patient left the ED. tm5 Signatures: Dispatcher [employer] EDMS Elsner, Ford, OPERATIONS SUPPORT REPRESENTATIVE OPERATIONS SUPPORT REPRESENTATIVE miesha Steinberg, Cee, DISPLAYER MERCHANDISE DISPLAYER MERCHANDISE jb5 Edilia Khoury,RN RN jo3 Kirstie Cano, Geochemistry Teacher Unit Estefania Moore,RN RN [facility] [place] Mikey, Alecia Campbell, Melony Torres,RN RN tm5 Chart Complete MTDD
--- NOTE | 2016-11-27 17:11 | EDDOCDS ---
Physician Documentation [facility] Name: Jennifer Bowie Age: 31 yrs Sex: Female : 1985 Arrival Date: 11/24/2016 Time: 21:43 Bed 13 Private MD: Eliceo Valadez MD Disposition: 11/24/16 23:26 Discharged to Home/Self Care. Impression: Palpitations. - Condition is Stable. - Discharge Instructions: Palpitations. - Medication Reconciliation, Local Pharmacy Hours form. - Follow up: Eliceo Valadez; When: 1 week; Reason: Recheck today's complaints, Continuance of care. Follow up: Michael Laurent MD; When: Call to arrange an appointment; Reason: Further diagnostic work-up, Continuance of care. - Problem is an ongoing problem. - Symptoms are unchanged. Historical: - Allergies: Flagyljoint pain; - Home Meds: 1. none - PMHx: none; - PSHx: none; - Social history: Smoking status: Patient states was never smoker of tobacco. No barriers to communication noted, The patient speaks fluent Honduran, Speaks appropriately for age. - Family history: Not pertinent. - : The pt / caregiver states he / she is not on anticoagulants. Home medication list is obtained from the patient. - Exposure Risk Screening:: None identified. FILM SOUND COORDINATOR: 11/24 21:51 LMP 11/08/2016 jo3 Vital Signs: 21:45 BP 145 / 72; Pulse 104; Resp 18; Temp 97; Pulse Ox 100% ; Weight 58.97 kg / 130.01 lbs; jlm Height 5 ft. 6 in. (167.64 cm); Pain 5/10; 22:02 BP 121 / 62 (auto/); tm5 22:03 Pulse 78 MON; Pulse Ox 100% ; tm5 22:32 BP 118 / 63 (auto/); tm5 22:33 Pulse 70 MON; Pulse Ox 100% on R/A; tm5 23:02 BP 117 / 88 (auto/); tm5 23:02 Pulse 82 MON; Pulse Ox 99% on R/A; Pain 0/10; tm5 23:32 BP 117 / 66 (auto/); tm5 23:33 Pulse 66 MON; Resp 18; Temp 98.3(O); Pulse Ox 100% on R/A; Pain 0/10; tm5 21:45 Body Mass Index 20.98 (58.97 kg, 167.64 cm) [facility] MDM: 21:52 ECG WITH READING ER PHYS+CARDIAG ordered. EDMS 22:00 Aspirin Chewable Tablet 324 mg PO once ordered. ke 22:00 NS 0.9% 1000 ml IV at 100 mL/hr continuous ordered. ke 22:00 Briefcase Sewer/Pulse Ox/q 30 min VS ordered. ke 22:00 IV Saline Lock ordered. ke 22:00 Rhythm Strip to chart ordered. ke 22:00 Undress patient appropriately for examination ordered. ke 22:00 Basic Metabolic Profile Ordered. EDMS 22:00 CBC with Diff Ordered. EDMS 22:00 Cardiac Injury Profile Ordered. EDMS 22:00 Prothrombin Time Profile\E\INR Ordered. EDMS 22:00 Troponin Ordered. EDMS 22:00 Magnesium Level Ordered. EDMS 22:00 Thyroid Profile Ordered. EDMS 22:00 HCG,Serum Qualitative Ordered. EDMS 22:00 Urinalysis Ordered. EDMS 22:00 Urine Toxicology Ordered. EDMS 22:00 ETOH Ordered. EDMS 22:02 Chest, 2 View (pa\E\lat) Ordered. EDMS 22:55 Basic Metabolic Profile Reviewed. ke 22:55 CBC with Diff Reviewed. ke 22:55 Cardiac Injury Profile Reviewed. ke 22:55 Prothrombin Time Profile\E\INR Reviewed. ke 22:55 Troponin Reviewed. ke 22:55 Magnesium Level Reviewed. ke 22:55 Thyroid Profile Reviewed. ke 22:55 HCG,Serum Qualitative Reviewed. ke 22:55 ETOH Reviewed. ke 23:01 Financial registration complete. kf3 11/25 08:40 T-Sheet-- Draft Copy was scanned into [employer] and attached to record. [facility] 11/26 21:16 ECG/EKG was scanned into [employer] and attached to record. klr Administered Medications: 11/24 22:09 Drug: Aspirin 324 mg [aspirin 81 mg chewable tablet (4 tabs)] Route: PO; [facility] [place] 23:28 Follow up: Response: No Adverse Reaction tm5 22:16 Drug: NS 0.9% 1000 ml [sodium chloride 0.9 % intravenous solution] Route: IV; Rate: 100 tm5 mL/hr; Site: left antecubital; 23:29 Follow up: IV Status: Infusion discontinued; IV Intake: 200ml tm5 Signatures: Dispatcher [employer] EDFord Yin, OSTEOPATHIC MEDICINE TEACHER OSTEOPATHIC MEDICINE TEACHER Edilia YorkRN RN jo3 Juventino Martinez, Reg Reg kf3 Mikey, Alecia Campbell, Melony Torres RN RN tm5 Estefania Martinez RN [facility] The chart was reviewed and I authenticate all verbal orders and agree with the evaluation and treatment provided.Attachments: 11/25 08:40 T-Sheet-- Draft Copy 11/26 21:16 ECG/EKG klr Chart Complete MTDD
--- NOTE | 2016-11-27 17:11 | EDDOCDS ---
Physician Documentation [facility] Name: Jennifer Bowie Age: 31 yrs Sex: Female : 1985 Arrival Date: 11/24/2016 Time: 21:43 Bed 13 Private MD: Eliceo Valadez MD Disposition: 11/24/16 23:26 Discharged to Home/Self Care. Impression: Palpitations. - Condition is Stable. - Discharge Instructions: Palpitations. - Medication Reconciliation, Local Pharmacy Hours form. - Follow up: Eliceo Valadez; When: 1 week; Reason: Recheck today's complaints, Continuance of care. Follow up: Michael Laurent MD; When: Call to arrange an appointment; Reason: Further diagnostic work-up, Continuance of care. - Problem is an ongoing problem. - Symptoms are unchanged. Historical: - Allergies: Flagyljoint pain; - Home Meds: 1. none - PMHx: none; - PSHx: none; - Social history: Smoking status: Patient states was never smoker of tobacco. No barriers to communication noted, The patient speaks fluent Brazilian, Speaks appropriately for age. - Family history: Not pertinent. - : The pt / caregiver states he / she is not on anticoagulants. Home medication list is obtained from the patient. - Exposure Risk Screening:: None identified. CHIEF SUBSTATION OPERATOR: 11/24 21:51 LMP 11/08/2016 jo3 Vital Signs: 21:45 BP 145 / 72; Pulse 104; Resp 18; Temp 97; Pulse Ox 100% ; Weight 58.97 kg / 130.01 lbs; jlm Height 5 ft. 6 in. (167.64 cm); Pain 5/10; 22:02 BP 121 / 62 (auto/); tm5 22:03 Pulse 78 MON; Pulse Ox 100% ; tm5 22:32 BP 118 / 63 (auto/); tm5 22:33 Pulse 70 MON; Pulse Ox 100% on R/A; tm5 23:02 BP 117 / 88 (auto/); tm5 23:02 Pulse 82 MON; Pulse Ox 99% on R/A; Pain 0/10; tm5 23:32 BP 117 / 66 (auto/); tm5 23:33 Pulse 66 MON; Resp 18; Temp 98.3(O); Pulse Ox 100% on R/A; Pain 0/10; tm5 21:45 Body Mass Index 20.98 (58.97 kg, 167.64 cm) [facility] MDM: 21:52 ECG WITH READING ER PHYS+CARDIAG ordered. EDMS 22:00 Aspirin Chewable Tablet 324 mg PO once ordered. ke 22:00 NS 0.9% 1000 ml IV at 100 mL/hr continuous ordered. ke 22:00 Template Worker/Pulse Ox/q 30 min VS ordered. ke 22:00 IV Saline Lock ordered. ke 22:00 Rhythm Strip to chart ordered. ke 22:00 Undress patient appropriately for examination ordered. ke 22:00 Basic Metabolic Profile Ordered. EDMS 22:00 CBC with Diff Ordered. EDMS 22:00 Cardiac Injury Profile Ordered. EDMS 22:00 Prothrombin Time Profile\E\INR Ordered. EDMS 22:00 Troponin Ordered. EDMS 22:00 Magnesium Level Ordered. EDMS 22:00 Thyroid Profile Ordered. EDMS 22:00 HCG,Serum Qualitative Ordered. EDMS 22:00 Urinalysis Ordered. EDMS 22:00 Urine Toxicology Ordered. EDMS 22:00 ETOH Ordered. EDMS 22:02 Chest, 2 View (pa\E\lat) Ordered. EDMS 22:55 Basic Metabolic Profile Reviewed. ke 22:55 CBC with Diff Reviewed. ke 22:55 Cardiac Injury Profile Reviewed. ke 22:55 Prothrombin Time Profile\E\INR Reviewed. ke 22:55 Troponin Reviewed. ke 22:55 Magnesium Level Reviewed. ke 22:55 Thyroid Profile Reviewed. ke 22:55 HCG,Serum Qualitative Reviewed. ke 22:55 ETOH Reviewed. ke 23:01 Financial registration complete. kf3 11/25 08:40 T-Sheet-- Draft Copy was scanned into [employer] and attached to record. [facility] 11/26 21:16 ECG/EKG was scanned into [employer] and attached to record. klr Administered Medications: 11/24 22:09 Drug: Aspirin 324 mg [aspirin 81 mg chewable tablet (4 tabs)] Route: PO; [facility] 23:28 Follow up: Response: No Adverse Reaction tm5 22:16 Drug: NS 0.9% 1000 ml [sodium chloride 0.9 % intravenous solution] Route: IV; Rate: 100 tm5 mL/hr; Site: left antecubital; 23:29 Follow up: IV Status: Infusion discontinued; IV Intake: 200ml tm5 Signatures: Dispatcher [employer] EDFord Yin, UPTWIST SPINNER UPTWIST SPINNER Edilia YorkRN RN jo3 Juventino Martinez, Reg Reg kf3 Mikey, Alecia Campbell, Melony Torres RN RN tm5 Estefania Martinez RN [facility] [place] The chart was reviewed and I authenticate all verbal orders and agree with the evaluation and treatment provided.Attachments: 11/25 08:40 T-Sheet-- Draft Copy 11/26 21:16 ECG/EKG klr Chart Complete MTDD
== END 2016-11-24 23:52 | disposition home or self-care (01) ==
LOC: M ED 21:43
DX: R00.2 Palpitations (principal)
CPT/HCPCS: 36415; 71020; 80048; 82550; 82553; 83735; 84436; 84443; 84479; 84703; 85025; 85610; 93005; 93041; 96360; 99285; G0480

== ENCOUNTER → 2017-01-01 | Outpatient (REF) | payer OTHER | LOC: M SFHCPLAZ 08:08 | PROVIDERS: ATTEND Family Medicine | DX: M13.0 Polyarthritis, unspecified (principal) ==

== ENCOUNTER → 2017-02-23 | Outpatient (REF) | payer OTHER | LOC: M SFHCWAGY 16:53 | PROVIDERS: ATTEND Family Medicine | DX: Z11.3 Encounter for screening for infections with a predominantly sexual mode of transmission (principal) ==

== ENCOUNTER → 2017-03-07 | Outpatient (REF) | payer MEDICAID | LOC: M SFHCPLAZ 08:16 | PROVIDERS: ATTEND Nurse Practitioner Family | DX: G47.00 Insomnia, unspecified (principal) ==

== ENCOUNTER → 2017-04-18 | Outpatient (REF) | payer OTHER | LOC: M SFHCWAGY 11:39 | PROVIDERS: ATTEND Nurse Practitioner Women's Health | DX: Z11.3 Encounter for screening for infections with a predominantly sexual mode of transmission (principal); N72 Inflammatory disease of cervix uteri ==

== ENCOUNTER → 2017-05-07 | Outpatient (REF) | payer OTHER, MEDICAID | LOC: M WHC 15:39 | PROVIDERS: ATTEND Nurse Practitioner Family | DX: N76.0 Acute vaginitis (principal) ==

== ENCOUNTER → 2017-06-14 | Outpatient (CLI) | payer OTHER ==
--- NOTE | 2017-06-14 12:44 | REP ---
Clinical: Back pain . Technique: AP, lateral, bilateral oblique, and coned-down views. Findings: Alignment and lordosis is maintained. The vertebral bodies including transverse process and spinous processes are intact and normal. There is no evidence for acute fracture / compression injury or subluxation. No evidence for spondylolysis or spondylolisthesis. No significant degenerative change is noted. Impression: Normal lumbosacral spine radiograph series. Signed by Ravi Caba MD 06/14/2017 12:36 P
--- NOTE | 2017-06-14 12:44 | REP ---
Clinical: thoracic pain. Technique: AP, lateral, and swimmers views. Findings: Alignment and kyphosis is maintained. Vertebral bodies intact. No acute fracture / compression injury or subluxation. No degenerative changes. Paravertebral soft tissues are normal. Impression: Normal thoracic spine series. Signed by Ravi Caba MD 06/14/2017 12:35 P
--- NOTE | 2017-06-14 12:45 | REP ---
Clinical: Cervicalgia . Technique: AP, lateral, flexion/extension, bilateral oblique, and open-mouth views. Findings: Alignment and lordosis is maintained. There is no evidence for acute fracture / compression injury or subluxation. No significant degenerative changes are appreciated. Oblique views demonstrate patent neural foramen. Open mouth view demonstrates normal C1-C2 articulation and odontoid process. Impression: Normal cervical spine series. Signed by Ravi Caba MD 06/14/2017 12:36 P
== END ==
LOC: M RAD 11:27
PROVIDERS: ATTEND Nurse Practitioner Family
DX: M54.2 Cervicalgia (principal)

== ENCOUNTER → 2017-11-11 | Outpatient (REF) | payer OTHER ==
[2017-11-11 11:46] LABS: INFLUENZA A AMPLIFICATION NEGATIVE (NEGATIVE); INFLUENZA B AMPLIFICATION NEGATIVE (NEGATIVE); RSV AMPLIFICATION NEGATIVE (NEGATIVE)
== END ==
LOC: M LAB REF 11:04
DX: J11.1 Influenza due to unidentified influenza virus with other respiratory manifestations (principal)

== ENCOUNTER → 2018-01-11 | Outpatient (REF) | payer OTHER ==
[2018-01-15 14:13] LABS: HPV HYBRID CAPTURE II Positive (Negative)
== END ==
LOC: M SFHCWAGY 16:03
DX: Z12.4 Encounter for screening for malignant neoplasm of cervix (principal)

== ENCOUNTER → 2018-01-22 | Outpatient (REF) | payer OTHER ==
[2018-01-22 22:01] LABS: APPEARANCE, URINE HAZY (CLEAR); BACTERIA, URINE AUTO 1+ (NEGATIVE); BILIRUBIN, URINE AUTO NEGATIVE (NEGATIVE); BLOOD, URINE BLOOD 3+ (NEGATIVE); COLOR, URINE YELLOW (YELLOW); GLUCOSE, URINE (UA) AUTO NEGATIVE (NEGATIVE); KETONE, URINE AUTO NEGATIVE (NEGATIVE); LEUKOCYTE ESTERASE, URINE AUTO 3+ (NEGATIVE); NITRITE, URINE AUTO NEGATIVE (NEGATIVE); PROTEIN, URINE AUTO 1+ mg/dL (NEGATIVE); RBC, URINE AUTO TNTC /HPF (0-3); SPECIFIC GRAVITY URINE AUTO 1.008 (1.002-1.035); SQUAMOUS EPITHELIAL CELL UR AU 1 /HPF (0-6); UROBILINOGEN, URINE AUTO 0.2 mg/dL (0.0-2.0); WBC, URINE AUTO TNTC /HPF (0-3)
== END ==
LOC: M LAB REF 10:34
DX: N39.0 Urinary tract infection, site not specified (principal)

== ENCOUNTER 2018-02-18 13:34 | Day surgery (SDC) | payer OTHER ==
[2018-02-18] MEDS: NS 1,000 ML IV (13:45)
[2018-02-18] MEDS ORDERED: PROPOFOL 200 MG/20 ML VIAL As Ordered (14:58)
[2018-02-18] MEDS ORDERED: fentaNYL 100 MCG/2 ML INJECTION (J3010) As Ordered (14:58)
[2018-02-18] MEDS ORDERED: LIDOCAINE 2% INJ 100 MG/5 ML SDV (FOR ANES.) As Ordered (14:58)
== END 2018-02-18 15:33 | disposition home or self-care (01) ==
LOC: M OPP 13:34
DX: R13.10 Dysphagia, unspecified (principal); F45.8 Other somatoform disorders; R11.10 Vomiting, unspecified; R00.2 Palpitations; R01.1 Cardiac murmur, unspecified; K21.9 Gastro-esophageal reflux disease without esophagitis; Z86.718 Personal history of other venous thrombosis and embolism; R06.02 Shortness of breath; M54.89 Other dorsalgia; R06.83 Snoring; F41.9 Anxiety disorder, unspecified; Z88.8 Allergy status to other drugs, medicaments and biological substances; Z79.899 Other long term (current) drug therapy; Z80.0 Family history of malignant neoplasm of digestive organs
CPT/HCPCS: 43239

== ENCOUNTER → 2018-02-22 | Outpatient (REF) | payer OTHER ==
[2018-02-22 16:11] LABS: APPEARANCE, URINE HAZY (CLEAR); BACTERIA, URINE AUTO NEGATIVE (NEGATIVE); BILIRUBIN, URINE AUTO NEGATIVE (NEGATIVE); BLOOD, URINE BLOOD NEGATIVE (NEGATIVE); COLOR, URINE COLORLESS (YELLOW); GLUCOSE, URINE (UA) AUTO NEGATIVE (NEGATIVE); KETONE, URINE AUTO NEGATIVE (NEGATIVE); LEUKOCYTE ESTERASE, URINE AUTO 2+ (NEGATIVE); NITRITE, URINE AUTO NEGATIVE (NEGATIVE); PROTEIN, URINE AUTO NEGATIVE (NEGATIVE); RBC, URINE AUTO 4 /HPF (0-3); SPECIFIC GRAVITY URINE AUTO 1.002 (1.002-1.035); SQUAMOUS EPITHELIAL CELL UR AU 4 /HPF (0-6); UROBILINOGEN, URINE AUTO 0.2 mg/dL (0.0-2.0); WBC, URINE AUTO 4 /HPF (0-3)
== END ==
LOC: M LAB REF 15:30
DX: N39.0 Urinary tract infection, site not specified (principal)

== ENCOUNTER → 2018-03-14 | Outpatient (REF) | payer OTHER ==
[2018-03-14 13:40] LABS: APPEARANCE, URINE CLEAR (CLEAR); BACTERIA, URINE AUTO NEGATIVE (NEGATIVE); BILIRUBIN, URINE AUTO NEGATIVE (NEGATIVE); BLOOD, URINE BLOOD NEGATIVE (NEGATIVE); COLOR, URINE YELLOW (YELLOW); GLUCOSE, URINE (UA) AUTO NEGATIVE (NEGATIVE); KETONE, URINE AUTO NEGATIVE (NEGATIVE); LEUKOCYTE ESTERASE, URINE AUTO NEGATIVE (NEGATIVE); NITRITE, URINE AUTO NEGATIVE (NEGATIVE); PROTEIN, URINE AUTO NEGATIVE (NEGATIVE); RBC, URINE AUTO 0 /HPF (0-3); SPECIFIC GRAVITY URINE AUTO 1.006 (1.002-1.035); SQUAMOUS EPITHELIAL CELL UR AU 2 /HPF (0-6); UROBILINOGEN, URINE AUTO 0.2 mg/dL (0.0-2.0); WBC, URINE AUTO 0 /HPF (0-3)
== END ==
LOC: M LAB REF 12:50
DX: N39.0 Urinary tract infection, site not specified (principal)

== ENCOUNTER → 2018-04-04 | Outpatient (CLI) | payer OTHER ==
[2018-04-04 19:41] LABS: BASO # 0.1 10^3/uL (0.0-0.2); BASO % 0.6 % (0.0-1.0); EOS # 0.1 10^3/uL (0.0-0.50); EOS % 1.1 % (0.0-3.0); HEMATOCRIT 38.1 % (36.0-47.0); HEMOGLOBIN 12.7 g/dl (12.0-15.5); IMMATURE GRANULOCYTE % 0.4 % (0-3.0); LYMPH # 2.5 10^3/uL (1.5-4.5); LYMPH % 21.8 % (24.0-44.0); MEAN CORPUSCULAR HEMOGLOBIN 28.6 pg (27.0-33.0); MEAN CORPUSCULAR HGB CONC 33.3 g/dl (32.0-36.5); MEAN CORPUSCULAR VOLUME 85.8 fl (80.0-96.0); MONO # 0.8 10^3/uL (0.0-0.8); MONO % 7.3 % (0.0-5.0); NEUTROPHILS # 7.8 10^3/uL (1.8-7.7); NEUTROPHILS % 68.8 % (36.0-66.0); PLATELET COUNT, AUTOMATED 319 10^3/uL (150-450); RED BLOOD COUNT 4.44 10^6/uL (4.00-5.40); RED CELL DISTRIBUTION WIDTH 12.7 % (11.5-14.5); WHITE BLOOD COUNT 11.4 10^3/uL (4.0-10.0)
[2018-04-04 20:00] LABS: ALBUMIN 3.9 GM/DL (3.2-5.2); ALBUMIN/GLOBULIN RATIO 1.05 (1.00-1.93); ALKALINE PHOSPHATASE 71 U/L (45-117); ALT/SGPT 25 U/L (12-78); ANION GAP 8 MEQ/L (8-16); AST/SGOT 11 U/L (7-37); BILIRUBIN,TOTAL 0.5 MG/DL (0.2-1.0); BLOOD UREA NITROGEN 7 MG/DL (7-18); CALCIUM LEVEL 9.1 MG/DL (8.5-10.1); CARBON DIOXIDE LEVEL 28 MEQ/L (21-32); CHLORIDE LEVEL 105 MEQ/L (98-107); CREATININE FOR GFR 0.71 MG/DL (0.55-1.30); GLOMERULAR FILTRATION RATE > 60.0 (>60); GLUCOSE, FASTING 97 MG/DL (70-100); POTASSIUM SERUM 3.8 MEQ/L (3.5-5.1); SODIUM LEVEL 141 MEQ/L (136-145); TOTAL PROTEIN 7.6 GM/DL (6.4-8.2)
== END ==
LOC: M LAB 19:20
DX: R19.7 Diarrhea, unspecified (principal)
CPT/HCPCS: 80053

== ENCOUNTER → 2018-04-15 | Outpatient (REF) | payer OTHER ==
[2018-04-15 22:35] LABS: CHLAMYDIA DNA AMPLIFICATION NEGATIVE (NEGATIVE); GC DNA AMPLIFICATION NEGATIVE (NEGATIVE)
== END ==
LOC: M SFHCWAGY 17:05
DX: Z11.3 Encounter for screening for infections with a predominantly sexual mode of transmission (principal)

== ENCOUNTER → 2018-04-15 | Outpatient (REF) | payer OTHER | LOC: M SFHCWAGY 15:41 | DX: R87.810 Cervical high risk human papillomavirus (HPV) DNA test positive (principal); R87.612 Low grade squamous intraepithelial lesion on cytologic smear of cervix (LGSIL) | CPT/HCPCS: 88304 ==

== ENCOUNTER 2018-04-24 18:37 | Emergency (ER) | payer OTHER ==
[2018-04-24] MEDS: NAPROXEN 250 MG TAB PO (21:32)
== END 2018-04-24 21:43 | disposition home or self-care (01) ==
LOC: M ED 18:37
DX: I80.02 Phlebitis and thrombophlebitis of superficial vessels of left lower extremity (principal); S70.12XA Contusion of left thigh, initial encounter; X58.XXXA Exposure to other specified factors, initial encounter; Y92.9 Unspecified place or not applicable; Y93.9 Activity, unspecified; Y99.9 Unspecified external cause status; K21.9 Gastro-esophageal reflux disease without esophagitis; Z86.718 Personal history of other venous thrombosis and embolism; Z79.899 Other long term (current) drug therapy; Z88.8 Allergy status to other drugs, medicaments and biological substances
CPT/HCPCS: 93971

== ENCOUNTER → 2018-10-23 | Outpatient (CLI) | payer OTHER ==
[~2018-10-23] MED LIST: CRAN125T PO; FISH1000 PO; MELA1TAB PO; NAPR-50 PO; OMEP40CA2 PO; PROBCAP4 PO; VITA-112 PO; ZANT150T15 PO
--- NOTE | 2018-10-23 13:38 | REP ---
Modified barium swallow: History: Dysphagia. She does not feel that solid food "goes down the right tube" occasionally. She relates a frequent need to clear her throat. There is also a history of gastroesophageal reflux according to the patient. Lateral fluoroscopy was acquired in conjunction with the swallowing therapist who gave the patient varying consistencies of barium labeled material to ingest. Fluoroscopy time is 1.3 minutes. Findings: With thin liquids on multiple repetitive lateral radiography, there is slightly delayed epiglottic inversion resulting in laryngeal penetration. No tracheal aspiration was observed. Question loss of compliance of the epiglottis versus polyp. No retropharyngeal soft tissue swelling is seen. The cervical spine is normal radiographically in the lateral projection. Laryngeal elevation is felt to be normal. No other swallowing dysfunction is identified. Impression: Slight delay in epiglottic inversion resulting in laryngeal penetration. Question epiglottic lesion versus lack of compliance. Otherwise negative. Electronically Signed by Ko Mims MD 10/23/2018 05:16 P
--- NOTE | 2018-10-24 16:01 | NUR ---
Per Gastroenterology report dated 09/17/19 and consistent with report provided by Pt to this newspaper writer: Pt is a 33 y/o female who c/o increased problems with swallowing over the past 4 weeks. Started after she tried to reduce the omeprazole dosage. She was taking 20 mg every other day. She continued this for 7-10 days but had increased heartburn. She has since resumed 40mg daily.....'she' has problems with almost every meal, where some bites of the solid food feel that they are not going down correctly when she swallows. She has to cough the food back up and try again. When it does go down, it will feel like it gets stuck in the lower esophagus. No problems with liquids. No episodes of choking or aspiration. No medication side effects noted. Appetite is good, but she feels limited in the food that she can eat. Has lost weight due to the fact that she is not eating the same volume of feed that she usually does.....frequent throat clearing and dry cough. Since her gastroenterology visit, Pt reports that swallowing is a little better. Pt presents with mild pharyngeal phase dysphagia as characterized by flash penetration of thin and nectar thick liquids and incomplete epiglottic inversion of all textures. Recommend: Regular solids/liquids (as tolerated). Dysphagia tx for GERD education (behavioral and diet) and exercise regimen for improving epiglottic inversion. MD please consider ENT consult to view integrity of epiglottis Addendum: 10/24/18 at 1604 by KORINA MO [facility] Amended: Links added.
== END ==
LOC: M ST 11:41
PROVIDERS: ATTEND Physician Assistant Medical
DX: R13.10 Dysphagia, unspecified (principal)

== ENCOUNTER 2018-12-18 08:00 | Outpatient (RCR) | payer OTHER ==
--- NOTE | 2018-12-06 10:35 | NUR ---
Pt. seen today for swallow evaluation and treatment as follow up to her Modified Barium Swallow Study (10/24/18). Study showed mild pharyngeal phase dysphagia as characterized by flash penetration of thin and nectar thick liquids and incomplete epiglottic inversion of all textures. Pt was just beginning a regimen of GERD medication. Since that study, ENT has recommended a change in medication (from Protonix to omeprazole). Pt is taking omeprazole 2x a day at 40mg. Pt reports she is feeling a little better. Pt presents today with continued c/o difficulty swallowing and GERD symptoms intermittently. Throat clearing noted frequently throughout evaluation. Recommend: Regular solids/liquids (as tolerated). Dysphagia tx for GERD education (behavioral and diet) and exercise regimen for improving epiglottic inversion. Following assessment, Pt was provided with HEP for laryngeal elevation and epiglottic inversion. Pt. demonstrated understanding and execution of exercises at 100% accuracy. Session also targeted GERD education regarding diet and behavioral factors. Handouts for exercises, diet and behaviors have been scanned into the EMR. Addendum: 12/06/18 at 1036 by KORINA MO [facility] Amended: Links added.
== END 2018-12-29 ==
LOC: M ST 08:00
PROVIDERS: ATTEND Physician Assistant Medical
DX: Z51.89 Encounter for other specified aftercare (principal); R13.10 Dysphagia, unspecified

== ENCOUNTER 2019-01-02 14:38 | Outpatient (RCR) | payer OTHER ==
[~2019-01-02 14:38] MED LIST changes: -NAPR-50 PO; +NAPR-837 PO
== END 2019-01-28 ==
LOC: M ST 14:38
PROVIDERS: ATTEND Physician Assistant Medical
DX: R13.10 Dysphagia, unspecified (principal)

== ENCOUNTER 2019-01-23 10:56 | Day surgery (SDC) | payer OTHER ==
[~2019-01-23] VITALS: Ht 167.6 cm; Wt 66.4 kg
[~2019-01-23 10:56] MED LIST changes: +BUPIVACAINE/EPIN 0.5% 30 ML VIAL As Ordered ONE; +LIDOCAINE W/EPINEPHRINE 1% 20ML VIAL As Ordered ONE; +LR 1,000 ML IV ONE
[2019-01-23 11:29] LABS: URINE PREG TEST NEGATIVE (NEGATIVE)
[2019-01-23] MEDS ORDERED: ONDANSETRON 4MG/2ML VIAL (J2405) As Ordered ONE (11:56)
[2019-01-23] MEDS ORDERED: DESFLURANE 240 ML INHALANT As Ordered ONE (11:56)
[2019-01-23] MEDS ORDERED: MIDAZOLAM INJ 2 MG/2 ML VIAL (J2250) As Ordered ONE (11:56)
[2019-01-23] MEDS ORDERED: METOCLOPRAMIDE INJ 10MG/2ML VIAL (J2765) As Ordered ONE (11:56)
[2019-01-23] MEDS ORDERED: dexameTHASONE 4 MG/ML 1ML VIAL (J1100) As Ordered ONE (11:56)
[2019-01-23] MEDS ORDERED: PROPOFOL 200 MG/20 ML VIAL As Ordered ONE (11:56)
[2019-01-23] MEDS ORDERED: LIDOCAINE 2% INJ 100 MG/5 ML SDV (FOR ANES.) As Ordered ONE (11:56)
[2019-01-23] MEDS ORDERED: fentaNYL 100 MCG/2 ML INJECTION (J3010) As Ordered ONE (11:57)
[2019-01-23] MEDS ORDERED: LR 1,000 ML IV SCH ×2 (13:45)
[2019-01-23] MEDS ORDERED: NORCO, ANEXSIA 5/325MG TABLET (HYDROcodone/ACETAMINOPHEN) PO PRN ×2 (13:45)
[2019-01-23] MEDS ORDERED: fentaNYL 100 MCG/2 ML INJECTION (J3010) IV PRN (13:45)
[2019-01-23] MEDS ORDERED: ONDANSETRON 4MG/2ML VIAL (J2405) IV PRN (13:45)
[2019-01-23 15:23] VITALS: BP 127/67
--- NOTE | 2019-01-24 15:27 | RO ---
DATE OF PROCEDURE: 01/23/2019 PREPROCEDURE DIAGNOSIS: Chronic tonsillitis. POSTPROCEDURE DIAGNOSIS: Chronic tonsillitis. OPERATIVE PROCEDURE: Tonsillectomy. SURGEON: Dmitri Lewis MD [employer] INSPECTOR: ANESTHESIA: DESCRIPTION OF PROCEDURE: Under general anesthesia with the patient intubated, a Cristobal-Paul mouth gag was inserted. The tonsil area was infiltrated with lidocaine, epinephrine and Marcaine. Using cautery, I dissected the tonsil free from its bed on both sides. The base and apex and other areas were cauterized. The patient tolerated the procedure well. No blood loss. Patient was extubated and transferred to the recovery room in excellent condition.
== END 2019-01-23 15:15 | disposition home or self-care (01) ==
LOC: M SDC 10:56
PROVIDERS: ATTEND Otolaryngology
DX: J35.01 Chronic tonsillitis (principal); K21.9 Gastro-esophageal reflux disease without esophagitis; F41.9 Anxiety disorder, unspecified; R01.1 Cardiac murmur, unspecified; R06.83 Snoring; Z88.8 Allergy status to other drugs, medicaments and biological substances
CPT/HCPCS: 42826; 84703; 88302; J1100; J2250; J2405; J2765; J3010

== ENCOUNTER 2019-01-30 02:36 | Emergency (ER) | payer OTHER ==
[~2019-01-30] VITALS: Ht 167.6 cm; Wt 65.9 kg
[~2019-01-30 02:36] MED LIST changes: -BUPIVACAINE/EPIN 0.5% 30 ML VIAL As Ordered ONE; -LIDOCAINE W/EPINEPHRINE 1% 20ML VIAL As Ordered ONE; -LR 1,000 ML IV ONE
[2019-01-30 04:43] VITALS: BP 148/72
== END 2019-01-30 04:44 | disposition home or self-care (01) ==
LOC: M ED 02:36
DX: J95.830 Postprocedural hemorrhage of a respiratory system organ or structure following a respiratory system procedure (principal); Z79.899 Other long term (current) drug therapy; Z88.8 Allergy status to other drugs, medicaments and biological substances

== ENCOUNTER → 2019-04-24 | Outpatient (CLI) | payer OTHER | LOC: M SMT 08:02 | PROVIDERS: ATTEND Specialist | DX: Z13.79 Encounter for other screening for genetic and chromosomal anomalies (principal) ==

== ENCOUNTER → 2019-05-19 | Outpatient (CLI) | payer OTHER | LOC: M LAB 10:40 | PROVIDERS: ATTEND Obstetrics & Gynecology | DX: Z53.9 Procedure and treatment not carried out, unspecified reason (principal) ==

== ENCOUNTER → 2019-06-16 | Outpatient (CLI) | payer OTHER ==
[~2019-06-16] MED LIST changes: -OMEP40CA2 PO; +OMEP40CA97 PO
--- NOTE | 2019-06-17 04:58 | REP ---
Clinical: Anatomical evaluation. Comparison: None . Findings: Examination demonstrates a single live intrauterine in cephalic presentation. motion is identified by technologist. Placenta is noted posterior and grade zero without evidence for placenta previa or abruption. Amniotic fluid volume is normal. Cervix measures 3.8 cm in length and appears closed. No evidence for nuchal cord. Gestational age by LMP 25 weeks 0 days with VAN 09/29/2019 . Gestational age by current measurements 20 weeks 0 days with VAN 11/03/2019 . FHR equals 130 beats per minute. BPD 4.7 cm 20 weeks 1 day HC 17.4 cm 20 weeks 0 days AC 15.1 cm 20 weeks 2 days FL 3.2 cm 19 weeks 6 days HL 3.0 cm 19 weeks 6 days HC/AC ratio 1.15 Estimated weight 332 grams ( 49th percentile based on age by current measurements ). Anatomical assessment demonstrates normal structures including cranium, choroid plexus, cavum, cerebellum/posterior fossa, facial features, lungs, four-chamber heart/ventricular outflow tracts, diaphragm, stomach, cord insertion/three-vessel cord, kidneys/bladder, spine, and extremities. Impression: 1. Single live intrauterine in cephalic presentation. 2. Anatomical assessment is complete and normal. Electronically Signed by Ravi Caba MD 06/17/2019 04:49 A
== END ==
LOC: M RAD 07:08
PROVIDERS: ATTEND Obstetrics & Gynecology
DX: Z34.82 Encounter for supervision of other normal pregnancy, second trimester (principal); Z3A.20 20 weeks gestation of pregnancy

== ENCOUNTER → 2019-08-06 | Outpatient (CLI) | payer OTHER ==
[2019-08-06 13:48] LABS: HEMATOCRIT 36.3 % (36.0-47.0); HEMOGLOBIN 11.7 g/dl (12.0-15.5); MEAN CORPUSCULAR HEMOGLOBIN 29.7 pg (27.0-33.0); MEAN CORPUSCULAR HGB CONC 32.2 g/dl (32.0-36.5); MEAN CORPUSCULAR VOLUME 92.1 fl (80.0-96.0); PLATELET COUNT, AUTOMATED 260 10^3/uL (150-450); RED BLOOD COUNT 3.94 10^6/uL (4.00-5.40); WHITE BLOOD COUNT 9.5 10^3/uL (4.0-10.0)
== END ==
LOC: M SMT 10:15
PROVIDERS: ATTEND Advanced Practice Midwife
DX: O09.522 Supervision of elderly multigravida, second trimester (principal)

== ENCOUNTER → 2019-08-08 | Outpatient (CLI) | payer OTHER | LOC: M LAB 06:06 | PROVIDERS: ATTEND Advanced Practice Midwife | DX: O09.522 Supervision of elderly multigravida, second trimester (principal) ==

== ENCOUNTER → 2019-10-03 | Outpatient (REF) | payer OTHER | LOC: M SFHCWAGY 16:41 | PROVIDERS: ATTEND Obstetrics & Gynecology | DX: Z36.85 Encounter for antenatal screening for Streptococcus B (principal) ==

== ENCOUNTER 2019-10-28 12:18 | Inpatient (IN) | payer OTHER ==
[~2019-10-28] VITALS: Ht 167.6 cm; Wt 83.0 kg
[2019-10-28] VITALS (40 sets, daily range): BP systolic 78–161; BP diastolic 53–87
[2019-10-28] MEDS ORDERED: PENICILLIN G POTASSIUM 5 MU VIAL As Ordered ONE (13:48)
[2019-10-28] MEDS ORDERED: PENICILLIN G POTASSIUM IV 5 MU in D5W MINI-BAG PLUS 100 ML IV STA (13:49)
[2019-10-28] MEDS ORDERED: LR 1,000 ML IV SCH ×2 (13:49→23:00)
[2019-10-28] MEDS ORDERED: LACTATED RINGER'S 1000 ML IV STA (13:49)
[2019-10-28] MEDS ORDERED: ASPI81CH33 PO (13:54)
[2019-10-28 14:08] LABS: HEMATOCRIT 38.4 % (36.0-47.0); MEAN CORPUSCULAR HEMOGLOBIN 29.9 pg (27.0-33.0); MEAN CORPUSCULAR HGB CONC 33.9 g/dl (32.0-36.5); MEAN CORPUSCULAR VOLUME 88.3 fl (80.0-96.0); PLATELET COUNT, AUTOMATED 285 10^3/uL (150-450); RED BLOOD COUNT 4.35 10^6/uL (4.00-5.40); WHITE BLOOD COUNT 17.6 10^3/uL (4.0-10.0)
[2019-10-28] MEDS ORDERED: FENTANYL 2MCG/ML ROPIVACAINE 0.2% IN 0.9% NACL 100ML IVBAG As Ordered ONE (14:13)
[2019-10-28] MEDS ORDERED: ONDANSETRON 4MG/2ML VIAL (J2405) IV PRN ×2 (15:45→22:00)
[2019-10-28] MEDS ORDERED: REFRIGERATOR IV KEYS XX PRN (15:45)
[2019-10-28] MEDS ORDERED: EPIDURAL/PCA KEYS XX PRN (15:45)
[2019-10-28] MEDS ORDERED: ePHEDrine SULFATE 25 MG/5 ML(5MG/ML) SYRINGE IV PRN (15:45)
[2019-10-28] MEDS ORDERED: EPIDURAL COMMENT XX SCH (15:45)
[2019-10-28] MEDS ORDERED: LACTATED RINGER'S 1000 ML IV PRN (15:45)
[2019-10-28] MEDS ORDERED: FENTANYL/ROPIVACAINE/NACL BAG 100 ML EPIDURAL SCH (15:45)
[2019-10-28] MEDS ORDERED: NALOXONE INJ 0.4 MG/1 ML VIAL (J2310) IV PRN (15:45)
[2019-10-28] MEDS ORDERED: diphenhydrAMINE INJ 50MG/ML VIAL (J1200) IV PRN (15:45)
[2019-10-28] MEDS ORDERED: PENICILLIN G POTASSIUM IV 2.5 MU in IV 1 EA IV SCH (18:00)
[2019-10-28] MEDS ORDERED: ASPIRIN 81 MG ENTERIC TAB PO SCH (20:30)
[2019-10-28] MEDS ORDERED: OMEPRAZOLE 20 MG CAP PO SCH (21:00)
[2019-10-28] MEDS ORDERED: OXYTOCIN 30 UNITS IN 0.9% NaCl 500ML IV BAG (J2590) As Ordered ONE (21:41)
[2019-10-28] MEDS ORDERED: ACETAMINOPHEN 500 MG TAB PO PRN (22:00)
[2019-10-28] MEDS ORDERED: DIBUCAINE 1% OINTMENT 30GM TOP PRN (22:00)
[2019-10-28] MEDS ORDERED: IBUPROFEN 800 MG TAB PO PRN (22:00)
[2019-10-28] MEDS ORDERED: PROMETHAZINE 25 MG TAB PO PRN (22:00)
[2019-10-28] MEDS ORDERED: ACETAMINOPHEN TAB 650MG DOSE (2X325MG) PO PRN (22:00)
[2019-10-28] MEDS ORDERED: DOCUSATE SODIUM 100 MG CAP PO PRN (22:00)
[2019-10-28] MEDS ORDERED: IBUPROFEN 600 MG TAB PO PRN (22:00)
[2019-10-28] MEDS ORDERED: RHOGAM 300 MCG (1500 IU) INJ (J2790) IM SCH (23:00)
[2019-10-28] MEDS ORDERED: MEASLES,MUMPS,RUBELLA VACCINE INJ (MMR-II) (90707) SC SCH (23:00)
[2019-10-28] MEDS ORDERED: OXYTOCIN DRIP 30 UNITS in IV 1 EA IV SCH (23:00)
[2019-10-29 00:50] VITALS: BP 118/59
[2019-10-29 05:51] VITALS: BP 124/69
[2019-10-29] MEDS ORDERED: OXYTOCIN DRIP 30 UNITS in IV 1 EA IV SCH (08:09)
[2019-10-29] MEDS: PRENATAL VITAMINS CHEWABLE TABLET PO SCH (09:04)
--- NOTE | 2019-10-29 10:03 | REP ---
Right lower extremity deep vein duplex ultrasound: The deep veins demonstrate normal compression, normal Doppler color flow and normal Doppler waveforms with respiration and augmentation from the popliteal vein to the common femoral vein. Impression: There is no deep vein thrombus. Electronically Signed by Juan Martinez MD 10/29/2019 09:54 A
[2019-10-29 17:58] VITALS: BP 128/63
[2019-10-30 06:01] VITALS: BP 122/71
[2019-10-30] MEDS: PRENATAL VITAMINS CHEWABLE TABLET PO SCH (08:02)
== END 2019-10-30 13:39 | disposition home or self-care (01) | DRG 560 ==
LOC: M LDO 12:18 → M LDI 13:25 → M OBS 10-29 00:10
PROVIDERS: ADMIT Obstetrics & Gynecology; ATTEND Obstetrics & Gynecology
PROC: 10E0XZZ Delivery of Products of Conception, External Approach (ICD-10-PCS; principal; 2019-10-28)
PROC: 0KQM0ZZ Repair Perineum Muscle, Open Approach (ICD-10-PCS; 2019-10-28)
PROC: 10907ZC Drainage of Amniotic Fluid, Therapeutic from Products of Conception, Via Natural or Artificial Opening (ICD-10-PCS; 2019-10-28)
DX: O99.824 Streptococcus B carrier state complicating childbirth (principal); O69.81X0 Labor and delivery complicated by cord around neck, without compression, not applicable or unspecified; Z3A.39 39 weeks gestation of pregnancy; Z37.0 Single live birth; O70.1 Second degree perineal laceration during delivery

== ENCOUNTER → 2019-11-18 | Outpatient (REF) | payer OTHER ==
[~2019-11-18] MED LIST changes: +ASPI81CH33 PO
== END ==
LOC: M SFHCWAGY 12:26
PROVIDERS: ATTEND Nurse Practitioner Women's Health
DX: N89.8 Other specified noninflammatory disorders of vagina (principal)

== ENCOUNTER → 2020-02-11 | Outpatient (CLI) | payer OTHER ==
--- NOTE | 2020-02-12 13:02 | REP ---
CONNOR SWALLOW The procedure was performed under the direct supervision of Dr. Moreau. The procedure was performed with Rosalia Liu from speech pathology present. 5 ml aliquots of thin, pudding, mixed fruit, soft and solid consistency barium as well as a barium pill were administered. With thin consistency barium there is laryngeal penetration. The patient was unable to swallow the barium pill. A detailed report of this examination will be provided by speech pathology. 1.5 minutes of fluoroscopy time was utilized for this procedure. Electronically Signed by DAMIR Romo 02/11/2020 05:04 P Electronically Signed by Juan Moreau MD 02/12/2020 12:53 P
== END ==
LOC: M ST 11:08
PROVIDERS: ATTEND Physician Assistant Medical
DX: R13.10 Dysphagia, unspecified (principal)

== ENCOUNTER 2020-03-04 10:41 | Outpatient (RCR) | payer OTHER | END 2020-03-30 | LOC: M ST 10:41 | PROVIDERS: ATTEND Physician Assistant Medical | DX: K21.9 Gastro-esophageal reflux disease without esophagitis (principal) ==

== ENCOUNTER 2020-05-15 13:14 | Emergency (ER) | payer OTHER ==
[2020-06-28 14:59] LABS: BASO # 0.1 10^3/uL (0.0-0.2); BASO % 0.6 % (0.0-1.0); EOS % 0.1 % (0.0-3.0); HEMOGLOBIN 14.6 g/dl (12.0-15.5); LYMPH # 1.8 10^3/uL (1.5-5.0); LYMPH % 15.5 % (24.0-44.0); MEAN CORPUSCULAR HEMOGLOBIN 29.3 pg (27.0-33.0); MEAN CORPUSCULAR HGB CONC 33.2 g/dl (32.0-36.5); MEAN CORPUSCULAR VOLUME 88.4 fl (80.0-96.0); MONO # 0.7 10^3/uL (0.0-0.8); MONO % 5.7 % (0.0-5.0); NEUTROPHILS # 8.9 10^3/uL (1.5-8.5); NEUTROPHILS % 77.8 % (36.0-66.0); PLATELET COUNT, AUTOMATED 367 10^3/uL (150-450); RED BLOOD COUNT 4.98 10^6/uL (4.00-5.40); WHITE BLOOD COUNT 11.5 10^3/uL (4.0-10.0)
[2020-06-28 15:01] LABS: ERYTHROCYTE SEDIMENTATION RATE 6 mm/hr (0-20)
[2020-07-21] MEDS ORDERED: OMEP-221 (09:18)
[2020-07-21] MEDS ORDERED: PRENTAB9 PO (09:18)
[2020-07-21] MEDS ORDERED: PROBCAP14 PO (09:18)
[2020-07-21] MEDS ORDERED: PREVTAB2 (09:18)
[2020-08-08 11:48] LABS: ALBUMIN 4.5 GM/DL (3.2-5.2); ALT/SGPT 20 U/L (12-78); BILIRUBIN,TOTAL 0.8 MG/DL (0.2-1.0); BLOOD UREA NITROGEN 8 MG/DL (7-18); CALCIUM LEVEL 9.6 MG/DL (8.5-10.1); CARBON DIOXIDE LEVEL 29 MEQ/L (21-32); CHLORIDE LEVEL 106 MEQ/L (98-107); CK-MB VALUE MASS < 1.0 NG/ML (<3.6); CPK CREATINE PHOSPHOKINASE 79 U/L (26-192); CREATININE FOR GFR 0.79 MG/DL (0.55-1.30); FREE T4 1.35 NG/DL (0.76-1.46); GLOMERULAR FILTRATION RATE > 60.0 (>60); GLUCOSE, FASTING 93 MG/DL (70-100); MB/CK RELATIVE INDEX 1.27 (< OR =4); POTASSIUM SERUM 3.9 MEQ/L (3.5-5.1); SODIUM LEVEL 141 MEQ/L (136-145); TOTAL PROTEIN 8.3 GM/DL (6.4-8.2); TROPONIN I < 0.02 NG/ML (< 0.10)
== END 2020-05-15 19:30 | disposition home or self-care (01) ==
LOC: M ED 13:14
DX: R06.02 Shortness of breath (principal); K21.9 Gastro-esophageal reflux disease without esophagitis; F41.9 Anxiety disorder, unspecified; Z86.718 Personal history of other venous thrombosis and embolism

== ENCOUNTER → 2020-07-13 | Outpatient (CLI) | payer OTHER ==
[~2020-07-13] MED LIST changes: +OMEP-221; +PRENTAB9 PO; +PREVTAB2; +PROBCAP14 PO
== END ==
LOC: M PLAIMG 12:51
PROVIDERS: ATTEND Physician Assistant Medical
DX: Z53.9 Procedure and treatment not carried out, unspecified reason (principal); M54.2 Cervicalgia

== ENCOUNTER → 2020-07-24 | Outpatient (CLI) | payer OTHER | LOC: M LABSMTC 11:08 | PROVIDERS: ATTEND Anesthesiology | DX: Z01.812 Encounter for preprocedural laboratory examination (principal); Z20.828 Contact with and (suspected) exposure to other viral communicable diseases | CPT/HCPCS: C9803; U0003 ==

== ENCOUNTER → 2020-07-26 | Outpatient (CLI) | payer OTHER ==
--- NOTE | 2020-07-26 18:15 | REPPI ---
INDICATION: M54.2 CERVICALGIA. Chronic neck and back pain. COMPARISON: Comparison cervical spine radiographs are from June 14, 2017.. TECHNIQUE: Seven views. FINDINGS: Cervical vertebral body heights are preserved. Alignment is normal. There is slight straightening. Flexion extension lateral views show no subluxation or instability. Disc spaces are maintained. Prevertebral soft tissues are unremarkable. Bilateral oblique radiographs demonstrate intact neural foramina bilaterally at each cervical level and normally aligned facets. AP and open-mouth odontoid views are unremarkable. No change from comparison study. IMPRESSION: Normal cervical spine radiographs. <Electronically signed by Christiano Mims > 07/26/20 [id number]
--- NOTE | 2020-07-26 18:16 | REPPI ---
INDICATION: M54.9 UPPER BACK PAIN. COMPARISON: Comparison radiographs are from January 11, 2018.. TECHNIQUE: Two views. FINDINGS: Thoracic vertebral body heights are preserved alignment is normal. Disc spaces are maintained. Pedicles and posterior elements are intact. No paravertebral soft tissue mass is seen. No bony destructive lesion is seen. The visualized ribcage is intact. Visualized lung ontiveros are clear. Heart size is normal. IMPRESSION: Normal thoracic spine radiographs. Unchanged from January 11, 2018. <Electronically signed by Christiano Mims > 07/26/20 [id number]
== END ==
LOC: M PLAIMG 14:24
PROVIDERS: ATTEND Physician Assistant Medical
DX: M54.2 Cervicalgia (principal); M54.9 Dorsalgia, unspecified

== ENCOUNTER 2020-07-29 07:06 | Day surgery (SDC) | payer OTHER ==
[~2020-07-29] VITALS: Ht 167.6 cm; Wt 66.2 kg
[~2020-07-29 07:06] MED LIST changes: +NS 1,000 ML IV ONE
[2020-07-29] MEDS ORDERED: propofoL 200 MG/20 ML VIAL As Ordered ONE ×2 (07:13→07:14)
[2020-07-29] MEDS ORDERED: LIDOCAINE 2% 100MG/5ML SDV (FOR ANES.) As Ordered ONE (07:13)
[2020-07-29] MEDS ORDERED: fentaNYL 100 MCG/2 ML INJECTION (J3010) As Ordered ONE (07:36)
--- NOTE | 2020-07-29 07:50 | ROOR ---
Patient Name: Jennifer Bowie Procedure Date: 07/29/2020 7:32 AM Date of : 1985 Age: 35 Room: [facility] Gender: Female Note Status: Finalized Procedure: Upper GI endoscopy Indications: Dysphagia Providers: Arden BARKLEY MD Referring MD: Michelle ALEMAN Requesting Provider: Medicines: Monitored Anesthesia Care Complications: No immediate complications. Procedure: Pre-Anesthesia Assessment: - The heart rate, respiratory rate, oxygen saturations, blood pressure, adequacy of pulmonary ventilation, and response to care were monitored throughout the procedure. - The heart rate, respiratory rate, oxygen saturations, blood pressure, adequacy of pulmonary ventilation, and response to care were monitored throughout the procedure. The Endoscope was introduced through the mouth, and advanced to the second part of duodenum. The upper GI endoscopy was accomplished without difficulty. The patient tolerated the procedure well. Findings: The esophagus was normal. The stomach was normal. The examined duodenum was normal. No endoscopic abnormality was evident in the esophagus to explain the patient's complaint of dysphagia. It was decided, however, to proceed with dilation of the entire esophagus. The scope was withdrawn. Dilation was performed with a Nuñez dilator with no resistance at 54 Fr. The dilation site was examined following endoscope reinsertion and showed no change. This was biopsied with a cold forceps for evaluation of eosinophilic esophagitis. Impression: - Normal esophagus. - Normal stomach. - Normal examined duodenum. - No endoscopic esophageal abnormality to explain patient's dysphagia. Esophagus dilated with 54 F Nuñez dilator. Biopsied. Recommendation: - Observe patient's clinical course. - Telephone endoscopist for pathology results in 2 weeks. Arden Barkley MD Arden BARKLEY MD 07/29/2020 7:49:57 AM Electronically signed by Arden BARKLEY MD Number of Addenda: 0 Note Initiated On: 07/29/2020 7:32 AM Estimated Blood Loss: Estimated blood loss: none.
[2020-07-29 08:15] VITALS: BP 113/63
== END 2020-07-29 08:19 | disposition home or self-care (01) ==
LOC: M OPP 07:06
PROVIDERS: ATTEND Internal Medicine Gastroenterology
DX: R13.10 Dysphagia, unspecified (principal); K21.9 Gastro-esophageal reflux disease without esophagitis; R12 Heartburn
CPT/HCPCS: 43239; 43450; 88305; J3010

== ENCOUNTER → 2020-09-03 | Outpatient (CLI) | payer SELFPAY ==
[~2020-09-03] MED LIST changes: -NS 1,000 ML IV ONE
== END ==
LOC: M LABSMTC 13:58
PROVIDERS: ATTEND Pediatrics
DX: Z20.828 Contact with and (suspected) exposure to other viral communicable diseases (principal)

== ENCOUNTER → 2020-10-05 | Outpatient (CLI) | payer OTHER | LOC: M LABSMTC 12:36 | PROVIDERS: ATTEND Family Medicine | DX: Z20.822 Contact with and (suspected) exposure to COVID-19 (principal) ==

== ENCOUNTER → 2020-10-08 | Outpatient (CLI) | payer OTHER ==
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
== END ==
LOC: M PLARAD 11:05
PROVIDERS: ATTEND Physician Assistant Medical
DX: M47.812 Spondylosis without myelopathy or radiculopathy, cervical region (principal)

== ENCOUNTER → 2020-10-14 | Outpatient (REF) | payer OTHER | LOC: M SFHCPLAZ 16:52 | PROVIDERS: ATTEND Physician Assistant Medical | DX: J01.01 Acute recurrent maxillary sinusitis (principal) ==

== ENCOUNTER → 2020-10-21 | Outpatient (REF) | payer OTHER ==
[2020-10-21 12:14] LABS: BASO # 0.1 10^3/uL (0.0-0.2); BASO % 1.1 % (0.0-1.0); EOS # 0.1 10^3/uL (0.0-0.5); EOS % 0.8 % (0.0-3.0); HEMATOCRIT 41.6 % (36.0-47.0); HEMOGLOBIN 13.3 g/dl (12.0-15.5); LYMPH # 2.3 10^3/uL (1.5-5.0); LYMPH % 30.2 % (24.0-44.0); MEAN CORPUSCULAR HEMOGLOBIN 28.3 pg (27.0-33.0); MEAN CORPUSCULAR VOLUME 88.5 fl (80.0-96.0); MONO # 0.8 10^3/uL (0.0-0.8); MONO % 10.3 % (0.0-5.0); NEUTROPHILS # 4.3 10^3/uL (1.5-8.5); NEUTROPHILS % 57.1 % (36.0-66.0); PLATELET COUNT, AUTOMATED 340 10^3/uL (150-450); WHITE BLOOD COUNT 7.5 10^3/uL (4.0-10.0)
[2020-10-21 12:32] LABS: ALBUMIN 3.9 GM/DL (3.2-5.2); ALT/SGPT 29 U/L (12-78); BILIRUBIN,TOTAL 1.4 MG/DL (0.2-1.0); BLOOD UREA NITROGEN 12 MG/DL (7-18); CALCIUM LEVEL 9.3 MG/DL (8.5-10.1); CARBON DIOXIDE LEVEL 32 MEQ/L (21-32); CHLORIDE LEVEL 103 MEQ/L (98-107); CHOLESTEROL LEVEL 171 MG/DL (<200); CHOLESTEROL RISK RATIO 2.714 (<5); CREATININE FOR GFR 0.77 MG/DL (0.55-1.30); GLOMERULAR FILTRATION RATE > 60.0 (>60); GLUCOSE, FASTING 74 MG/DL (70-100); HDL CHOLESTEROL 63 MG/DL (>40); LDL CHOLESTEROL 96 MG/DL (<100); NON-HDL-C 108 MG/DL; POTASSIUM SERUM 4.3 MEQ/L (3.5-5.1); SODIUM LEVEL 138 MEQ/L (136-145); TOTAL PROTEIN 7.5 GM/DL (6.4-8.2); TRIGLYCERIDES LEVEL 60 MG/DL (<150)
[2020-10-21 12:35] LABS: PTH INTACT 43.4 PG/ML (18.5-88.0); TOTAL 25(OH) VITAMIN D 33.8 NG/ML (30.0-100.0)
== END ==
LOC: M SFHCPLAZ 09:14
PROVIDERS: ATTEND Physician Assistant Medical
DX: E55.9 Vitamin D deficiency, unspecified (principal); J01.01 Acute recurrent maxillary sinusitis; Z13.220 Encounter for screening for lipoid disorders

== ENCOUNTER → 2020-11-24 | Outpatient (CLI) | payer OTHER ==
--- NOTE | 2020-11-24 15:15 | PFTRPT ---
Height: 66.00 Inches Weight: 143.00 Lbs BSA: 1.73 Diagnosis: R06.02 DATE: 11/24/2020 ORDERING PHYSICIAN: Michelle Roe Pre and post bronchodilator studies have excellent technical quality. Forced vital capacity is normal. FEV1 is in proportion. Obstructive index is therefore normal. Expiratory limit of the flow-volume loop is normal. No significant bronchodilator response is identified. Total lung capacity is normal. Residual volume is in proportion. Diffusing capacity is normal. No hemoglobin available for correction. Airway resistance and conductance are normal. IMPRESSION: Normal study. MTDD
== END ==
LOC: M CARPUL 14:44
PROVIDERS: ATTEND Physician Assistant Medical
DX: R06.02 Shortness of breath (principal)

== ENCOUNTER → 2021-02-21 | Outpatient (REF) | payer OTHER | LOC: M SFHCWAGY 09:12 | PROVIDERS: ATTEND Nurse Practitioner Women's Health | DX: Z12.4 Encounter for screening for malignant neoplasm of cervix (principal); R87.610 Atypical squamous cells of undetermined significance on cytologic smear of cervix (ASC-US) ==

== ENCOUNTER 2021-05-01 09:36 | Emergency (ER) | payer OTHER ==
[~2021-05-01] VITALS: Ht 167.6 cm; Wt 67.1 kg
[~2021-05-01 09:36] MED LIST changes: +OMEP40CA4 PO; -OMEP40CA97 PO
[2021-05-01] MEDS ORDERED: MUCI60TA7 PO (10:12)
[2021-05-01] MEDS ORDERED: PSEU120T19 PO (13:09)
[2021-05-01] MEDS ORDERED: FLON27.5 NARES (13:09)
[2021-05-01 13:22] VITALS: BP 128/82
--- NOTE | 2021-05-01 13:38 | REP ---
INDICATION: cough, short of breath, chest wall pain. COMPARISON: PA and lateral chest, 05/15/2020. TECHNIQUE: Upright PA and lateral images of the chest were obtained. FINDINGS: The lungs are clear. The heart borders, mediastinum and pulmonary vascular pattern are normal. The upper abdominal bowel gas pattern is normal. There are no bony abnormalities in the chest. IMPRESSION: No evidence of acute cardiopulmonary pathology. <Electronically signed by Abad Mcginnis > 05/01/21 [id number]
== END 2021-05-01 13:25 | disposition home or self-care (01) ==
LOC: M ED 09:36
DX: R05 Cough (principal); R52 Pain, unspecified; B34.8 Other viral infections of unspecified site; K21.9 Gastro-esophageal reflux disease without esophagitis; Z87.09 Personal history of other diseases of the respiratory system; J30.2 Other seasonal allergic rhinitis; Z79.899 Other long term (current) drug therapy

== ENCOUNTER → 2021-06-01 | Outpatient (REF) | payer OTHER ==
[~2021-06-01] MED LIST changes: +BENZ200C70 PO; +FAMO40TA3; +FLON27.5 NARES; +MUCI600T31 PO; +MUCI60TA7 PO; +OMEP-218; +PSEU120T19 PO; +VENTAER INH
== END ==
LOC: M SFHCPLAZ 16:51
PROVIDERS: ATTEND Physician Assistant Medical
DX: J02.8 Acute pharyngitis due to other specified organisms (principal)

== ENCOUNTER 2021-06-03 11:54 | Emergency (ER) | payer OTHER ==
[~2021-06-03] VITALS: Ht 167.6 cm; Wt 63.8 kg
[~2021-06-03 11:54] MED LIST changes: -BENZ200C70 PO; -FAMO40TA3; -MUCI600T31 PO; -OMEP-218; -VENTAER INH
[2021-06-03 13:16] LABS: BASO % 0.2 % (0.0-1.0); EOS % 0.1 % (0.0-3.0); HEMATOCRIT 40.7 % (36.0-47.0); HEMOGLOBIN 13.7 g/dl (12.0-15.5); LYMPH # 1.6 10^3/uL (1.5-5.0); LYMPH % 13.3 % (24.0-44.0); MEAN CORPUSCULAR HEMOGLOBIN 28.4 pg (27.0-33.0); MEAN CORPUSCULAR HGB CONC 33.7 g/dl (32.0-36.5); MEAN CORPUSCULAR VOLUME 84.4 fl (80.0-96.0); MONO # 0.2 10^3/uL (0.0-0.8); MONO % 1.5 % (2.0-8.0); NEUTROPHILS # 10.3 10^3/uL (1.5-8.5); NEUTROPHILS % 84.6 % (36.0-66.0); PLATELET COUNT, AUTOMATED 355 10^3/uL (150-450); RED BLOOD COUNT 4.82 10^6/uL (4.00-5.40); WHITE BLOOD COUNT 12.1 10^3/uL (4.0-10.0)
--- NOTE | 2021-06-03 13:39 | REP ---
INDICATION: sob. COMPARISON: A 121. TECHNIQUE: Single portable AP view of the chest was performed. FINDINGS: There is no acute infiltrate or pulmonary edema. Lungs are clear. The heart is not significantly enlarged. The mediastinal silhouette is unremarkable. The visualized osseous structures are intact. IMPRESSION: No acute pulmonary disease. <Electronically signed by Juan Moreau > 06/03/21 [id number]
[2021-06-03 13:43] LABS: ALBUMIN 4.1 GM/DL (3.2-5.2); ALT/SGPT 26 U/L (12-78); BILIRUBIN,TOTAL 0.8 MG/DL (0.2-1.0); BLOOD UREA NITROGEN 12 MG/DL (7-18); CALCIUM LEVEL 9.5 MG/DL (8.5-10.1); CARBON DIOXIDE LEVEL 23 MEQ/L (21-32); CHLORIDE LEVEL 108 MEQ/L (98-107); CREATININE FOR GFR 0.85 MG/DL (0.55-1.30); GLOMERULAR FILTRATION RATE > 60.0 (>60); GLUCOSE, FASTING 117 MG/DL (70-100); MAGNESIUM LEVEL 2.2 MG/DL (1.8-2.4); SODIUM LEVEL 138 MEQ/L (136-145); TOTAL PROTEIN 7.7 GM/DL (6.4-8.2)
[2021-06-03 15:24] VITALS: BP 124/73
[2021-06-04 15:11] LABS: ANTINUCLEAR ANTIBODIES DIRECT Negative (Negative)
== END 2021-06-03 15:27 | disposition home or self-care (01) ==
LOC: M ED 11:54
DX: U07.1 COVID-19 (principal); B97.4 Respiratory syncytial virus as the cause of diseases classified elsewhere; K21.9 Gastro-esophageal reflux disease without esophagitis; Z91.048 Other nonmedicinal substance allergy status

== ENCOUNTER → 2021-08-15 | Outpatient (REF) | payer OTHER | LOC: M SFHCPLAZ 16:49 | PROVIDERS: ATTEND Physician Assistant | DX: J06.9 Acute upper respiratory infection, unspecified (principal) ==

== ENCOUNTER → 2022-01-09 | Outpatient (CLI) | payer OTHER ==
[~2022-01-09] MED LIST changes: +BENZ200C70 PO; +E-Z-GAS II EFFERVESCENT PACKET (SODIUM BICARB./CITRIC ACID/SIMETHICONE) As Ordered ONE; +E-Z-HD 98% w/w 340GM SUSP BTL As Ordered ONE; +E-Z-PAQUE 96% w/w SUSP 176GM BTL As Ordered ONE; +FAMO40TA3; +MUCI600T31 PO; +OMEP-173; -OMEP-221; +OMEP40CA5; +VENTAER INH
== END ==
LOC: M RAD 08:21
PROVIDERS: ATTEND Physician Assistant Medical
DX: K21.9 Gastro-esophageal reflux disease without esophagitis (principal); R13.10 Dysphagia, unspecified; K31.7 Polyp of stomach and duodenum

== ENCOUNTER → 2022-02-02 | Outpatient (CLI) | payer OTHER ==
[~2022-02-02] MED LIST changes: -E-Z-GAS II EFFERVESCENT PACKET (SODIUM BICARB./CITRIC ACID/SIMETHICONE) As Ordered ONE; -E-Z-HD 98% w/w 340GM SUSP BTL As Ordered ONE
== END ==
LOC: M RAD 08:43
PROVIDERS: ATTEND Physician Assistant Medical
DX: K90.9 Intestinal malabsorption, unspecified (principal)

== ENCOUNTER → 2022-02-18 | Outpatient (CLI) | payer OTHER ==
[~2022-02-18] MED LIST changes: +C-50CHW5 PO; +CHOL25TA2 PO; -E-Z-PAQUE 96% w/w SUSP 176GM BTL As Ordered ONE; -FAMO40TA3; +FAMO40TA3 PO; +MULTCHW14 PO; +NEXI20CA33 PO; +PEARCAP PO; +VITA1TAB61 PO
== END ==
LOC: M LABSMTC 11:29
PROVIDERS: ATTEND Anesthesiology
DX: Z01.812 Encounter for preprocedural laboratory examination (principal); Z20.822 Contact with and (suspected) exposure to COVID-19

== ENCOUNTER 2022-02-23 13:08 | Day surgery (SDC) | payer OTHER ==
[~2022-02-23] VITALS: Ht 167.6 cm; Wt 66.7 kg
[~2022-02-23 13:08] MED LIST changes: +NS 1,000 ML IV ONE
[2022-02-23] MEDS ORDERED: propofoL 200 MG/20 ML VIAL As Ordered ONE ×2 (14:51→15:22)
[2022-02-23] MEDS ORDERED: LIDOCAINE 2% 100MG/5ML SDV (FOR ANES.) As Ordered ONE (14:51)
[2022-02-23] MEDS ORDERED: fentaNYL 100 MCG/2 ML INJECTION As Ordered ONE (14:51)
[2022-02-23 15:50] VITALS: BP 117/69
== END 2022-02-23 16:08 | disposition home or self-care (01) ==
LOC: M OPP 13:08
PROVIDERS: ATTEND Internal Medicine Gastroenterology
DX: K31.7 Polyp of stomach and duodenum (principal); Q39.4 Esophageal web; K22.89 Other specified disease of esophagus; R12 Heartburn; R13.10 Dysphagia, unspecified; R93.3 Abnormal findings on diagnostic imaging of other parts of digestive tract; Z79.52 Long term (current) use of systemic steroids; Z79.899 Other long term (current) drug therapy
CPT/HCPCS: 43239; 43251; 43450; 88305; J3010

== ENCOUNTER → 2022-04-13 | Outpatient (CLI) | payer OTHER ==
[~2022-04-13] MED LIST changes: -NS 1,000 ML IV ONE
== END ==
LOC: M PLAIMG 11:34
PROVIDERS: ATTEND Physician Assistant
DX: R05.1 Acute cough (principal)

== ENCOUNTER → 2022-06-22 | Outpatient (REF) | payer OTHER | LOC: M SFHCWAGY 10:00 | PROVIDERS: ATTEND Nurse Practitioner Family | DX: Z12.4 Encounter for screening for malignant neoplasm of cervix (principal); Z77.9 Other contact with and (suspected) exposures hazardous to health; R87.610 Atypical squamous cells of undetermined significance on cytologic smear of cervix (ASC-US) ==

== ENCOUNTER 2022-08-13 02:24 | Emergency (ER) | payer OTHER ==
[~2022-08-13] VITALS: Ht 167.6 cm; Wt 68.2 kg
[2022-08-13] MEDS ORDERED: OSEL75CA PO (02:34)
[2022-08-13] MEDS ORDERED: BENZ200C70 PO (02:34)
[2022-08-13 03:44] LABS: BASO % 0.3 % (0.0-1.0); EOS # 0.2 10^3/uL (0.0-0.5); EOS % 2.4 % (0.0-3.0); HEMATOCRIT 34.6 % (36.0-47.0); HEMOGLOBIN 10.8 g/dl (12.0-15.5); LYMPH # 1.6 10^3/uL (1.5-5.0); LYMPH % 25.7 % (24.0-44.0); MEAN CORPUSCULAR HEMOGLOBIN 25.2 pg (27.0-33.0); MEAN CORPUSCULAR HGB CONC 31.2 g/dl (32.0-36.5); MEAN CORPUSCULAR VOLUME 80.7 fl (80.0-96.0); MONO # 0.8 10^3/uL (0.0-0.8); MONO % 11.8 % (2.0-8.0); NEUTROPHILS # 3.8 10^3/uL (1.5-8.5); NEUTROPHILS % 59.5 % (36.0-66.0); PLATELET COUNT, AUTOMATED 288 10^3/uL (150-450); RED BLOOD COUNT 4.29 10^6/uL (4.00-5.40); WHITE BLOOD COUNT 6.4 10^3/uL (4.0-10.0)
[2022-08-13 04:31] LABS: BLOOD UREA NITROGEN 6 MG/DL (7-18); CALCIUM LEVEL 8.7 MG/DL (8.5-10.1); CARBON DIOXIDE LEVEL 27 MEQ/L (21-32); CHLORIDE LEVEL 109 MEQ/L (98-107); GLOMERULAR FILTRATION RATE > 60.0 (>60); GLUCOSE, FASTING 112 MG/DL (70-100); SODIUM LEVEL 141 MEQ/L (136-145)
[2022-08-13] MEDS ORDERED: ALBUTEROL 90 MCG/ACT 8GM HFA INHALER INH ONE (06:20)
[2022-08-13] MEDS ORDERED: PRED20TA PO (06:22)
[2022-08-13] MEDS ORDERED: NASA0.9A NARES (06:22)
[2022-08-13] MEDS ORDERED: MUCI1TAB16 PO (06:22)
[2022-08-13] MEDS ORDERED: ALBU6.7H6 INH (07:01)
[2022-08-13 07:23] VITALS: BP 129/78
== END 2022-08-13 07:25 | disposition home or self-care (01) ==
LOC: M ED 02:24
DX: J09.X2 Influenza due to identified novel influenza A virus with other respiratory manifestations (principal); J98.01 Acute bronchospasm; K21.9 Gastro-esophageal reflux disease without esophagitis; Z86.718 Personal history of other venous thrombosis and embolism; J30.2 Other seasonal allergic rhinitis; Z79.51 Long term (current) use of inhaled steroids; Z79.899 Other long term (current) drug therapy

== ENCOUNTER → 2022-08-22 | Outpatient (CLI) | payer OTHER ==
[~2022-08-22] MED LIST changes: +ALBU6.7H6 INH; +MUCI1TAB16 PO; +NASA0.9A NARES; +OSEL75CA PO; +PRED20TA PO
[2022-08-22 18:01] LABS: BASO # 0.1 10^3/uL (0.0-0.2); BASO % 0.6 % (0.0-1.0); EOS # 0.1 10^3/uL (0.0-0.5); EOS % 0.8 % (0.0-3.0); HEMATOCRIT 36.2 % (36.0-47.0); HEMOGLOBIN 10.9 g/dl (12.0-15.5); LYMPH # 3.9 10^3/uL (1.5-5.0); LYMPH % 32.6 % (24.0-44.0); MEAN CORPUSCULAR HEMOGLOBIN 25.2 pg (27.0-33.0); MEAN CORPUSCULAR HGB CONC 30.1 g/dl (32.0-36.5); MEAN CORPUSCULAR VOLUME 83.8 fl (80.0-96.0); MONO # 1.1 10^3/uL (0.0-0.8); MONO % 9.4 % (2.0-8.0); NEUTROPHILS # 6.7 10^3/uL (1.5-8.5); NEUTROPHILS % 55.1 % (36.0-66.0); PLATELET COUNT, AUTOMATED 464 10^3/uL (150-450); RED BLOOD COUNT 4.32 10^6/uL (4.00-5.40); WHITE BLOOD COUNT 12.1 10^3/uL (4.0-10.0)
[2022-08-22 19:02] LABS: BLOOD UREA NITROGEN 10 MG/DL (9-23); CALCIUM LEVEL 9.2 MG/DL (8.5-10.1); CARBON DIOXIDE LEVEL 29 MMOL/L (20-31); CHLORIDE LEVEL 103 MMOL/L (98-107); CREATININE FOR GFR 0.74 MG/DL (0.55-1.30); GLOMERULAR FILTRATION RATE > 60.0 (>60); GLUCOSE, FASTING 101 MG/DL (60-100); POTASSIUM SERUM 4.7 MMOL/L (3.5-5.1); SODIUM LEVEL 139 MMOL/L (136-145)
== END ==
LOC: M PLALAB 15:42
PROVIDERS: ATTEND Physician Assistant Medical
DX: R09.89 Other specified symptoms and signs involving the circulatory and respiratory systems (principal)

== ENCOUNTER → 2022-10-08 | Outpatient (CLI) | payer OTHER | LOC: M LABSMTC 11:06 | PROVIDERS: ATTEND Internal Medicine Gastroenterology | DX: Z01.812 Encounter for preprocedural laboratory examination (principal); Z20.822 Contact with and (suspected) exposure to COVID-19 ==

== ENCOUNTER → 2023-02-19 | Outpatient (REF) | payer OTHER | LOC: M SFHCPLAZ 14:11 | PROVIDERS: ATTEND Physician Assistant Medical | DX: Z53.9 Procedure and treatment not carried out, unspecified reason (principal) ==

== ENCOUNTER → 2023-02-19 | Outpatient (CLI) | payer OTHER ==
[2023-02-19 18:02] LABS: BASO # 0.1 10^3/uL (0.0-0.2); EOS # 0.1 10^3/uL (0.0-0.5); HEMATOCRIT 35.8 % (36.0-47.0); HEMOGLOBIN 10.8 g/dl (12.0-15.5); LYMPH % 30.5 % (24.0-44.0); MEAN CORPUSCULAR HEMOGLOBIN 24.1 pg (27.0-33.0); MEAN CORPUSCULAR HGB CONC 30.2 g/dl (32.0-36.5); MEAN CORPUSCULAR VOLUME 79.7 fl (80.0-96.0); MONO % 10.5 % (2.0-8.0); NEUTROPHILS # 5.5 10^3/uL (1.5-8.5); NEUTROPHILS % 56.7 % (36.0-66.0); PLATELET COUNT, AUTOMATED 372 10^3/uL (150-450); RED BLOOD COUNT 4.49 10^6/uL (4.00-5.40); WHITE BLOOD COUNT 9.8 10^3/uL (4.0-10.0)
[2023-02-19 18:12] LABS: ALBUMIN 3.7 G/DL (3.2-5.2); ALKALINE PHOSPHATASE 68 U/L (46-116); ALT/SGPT 16 U/L (7.0-40); AST/SGOT 12 U/L (<34); BILIRUBIN,TOTAL 0.5 MG/DL (0.3-1.2); BLOOD UREA NITROGEN 13 MG/DL (9-23); CALCIUM LEVEL 9.5 MG/DL (8.5-10.1); CARBON DIOXIDE LEVEL 28 MMOL/L (20-31); CHLORIDE LEVEL 106 MMOL/L (98-107); CREATININE FOR GFR 0.71 MG/DL (0.55-1.30); GLOMERULAR FILTRATION RATE > 60.0 (>60); GLUCOSE, FASTING 113 MG/DL (60-100); POTASSIUM SERUM 4.4 MMOL/L (3.5-5.1); SODIUM LEVEL 140 MMOL/L (136-145); TOTAL 25(OH) VITAMIN D 35.7 NG/ML (20.0-100.0)
[2023-02-19 18:13] LABS: VITAMIN B12 LEVEL 466 PG/ML (211-911)
[2023-02-21 18:56] LABS: IRON (FE) 24 UG/DL (50-170)
[2023-02-21 18:59] LABS: FERRITIN 2.5 NG/ML (7.3-270.7)
== END ==
LOC: M PLALAB 14:56
PROVIDERS: ATTEND Physician Assistant Medical
DX: E55.9 Vitamin D deficiency, unspecified (principal); K21.9 Gastro-esophageal reflux disease without esophagitis

== ENCOUNTER → 2023-02-21 | Outpatient (REF) | payer OTHER | LOC: M SFHCPLAZ 18:04 | PROVIDERS: ATTEND Physician Assistant Medical | DX: Z53.9 Procedure and treatment not carried out, unspecified reason (principal); D64.9 Anemia, unspecified; K21.9 Gastro-esophageal reflux disease without esophagitis ==

== ENCOUNTER 2023-03-05 08:19 | Outpatient (CLI) | payer OTHER ==
[~2023-03-05] VITALS: Ht 165.1 cm; Wt 70.5 kg
[~2023-03-05 08:19] MED LIST changes: +ALBUTEROL SULFATE 2.5MG/0.5ML INH NEB SOLN INH PRN; +EPINEPHrine INJ 1 MG/ML 1ML AMP IM PRN; +diphenhydrAMINE 50MG/ML VIAL IV PRN; +methylPREDNISolone 125MG 2ML VIAL IV PRN
[2023-03-05] MEDS ORDERED: IRON SUCROSE 25 MG in NS 23.75 ML IV ONE (08:30)
[2023-03-05] MEDS ORDERED: NS 1,000 ML IV SCH (08:30)
[2023-03-05] MEDS ORDERED: IRON SUCROSE 250 MG in NS 237.5 ML IV ONE (08:30)
[2023-03-05 08:36] VITALS: BP 144/81
[2023-03-05 09:10] VITALS: BP 131/72
[2023-03-05 10:50] VITALS: BP 137/63
[2023-03-05 11:25] VITALS: BP 132/65
== END 2023-03-05 11:40 ==
LOC: M INFU 08:19
PROVIDERS: ATTEND Physician Assistant Medical
DX: D50.9 Iron deficiency anemia, unspecified (principal); Z88.1 Allergy status to other antibiotic agents
CPT/HCPCS: 96365; 96366; J1756

== ENCOUNTER 2023-03-09 09:13 | Outpatient (CLI) | payer OTHER ==
[~2023-03-09] VITALS: Ht 165.1 cm; Wt 70.3 kg
[2023-03-09 09:15] VITALS: BP 133/67; O2SAT 100
[2023-03-09] MEDS ORDERED: IRON SUCROSE 225 MG in NS 213.75 ML IV ONE (09:30)
[2023-03-09] MEDS ORDERED: NS 1,000 ML IV SCH (09:30)
[2023-03-09] MEDS ORDERED: URSO300C3 PO (10:27)
[2023-03-09 11:45] VITALS: BP 133/79; O2SAT 100
== END 2023-03-09 11:45 | disposition home or self-care (01) ==
LOC: M INFU 09:13
PROVIDERS: ATTEND Physician Assistant Medical
DX: D50.9 Iron deficiency anemia, unspecified (principal)
CPT/HCPCS: 96365; J1756

== ENCOUNTER → 2023-03-30 | Outpatient (CLI) | payer OTHER ==
[~2023-03-30] MED LIST changes: -ALBUTEROL SULFATE 2.5MG/0.5ML INH NEB SOLN INH PRN; -EPINEPHrine INJ 1 MG/ML 1ML AMP IM PRN; +URSO300C3 PO; -diphenhydrAMINE 50MG/ML VIAL IV PRN; -methylPREDNISolone 125MG 2ML VIAL IV PRN
[2023-03-30 15:49] LABS: BASO # 0.1 10^3/uL (0.0-0.2); BASO % 1.1 % (0.0-1.0); EOS # 0.1 10^3/uL (0.0-0.5); EOS % 0.7 % (0.0-3.0); HEMATOCRIT 40.1 % (36.0-47.0); HEMOGLOBIN 12.5 g/dl (12.0-15.5); LYMPH # 2.7 10^3/uL (1.5-5.0); LYMPH % 29.9 % (24.0-44.0); MEAN CORPUSCULAR HEMOGLOBIN 26.1 pg (27.0-33.0); MEAN CORPUSCULAR HGB CONC 31.2 g/dl (32.0-36.5); MEAN CORPUSCULAR VOLUME 83.7 fl (80.0-96.0); MONO # 0.6 10^3/uL (0.0-0.8); NEUTROPHILS # 5.5 10^3/uL (1.5-8.5); NEUTROPHILS % 60.7 % (36.0-66.0); PLATELET COUNT, AUTOMATED 329 10^3/uL (150-450); RED BLOOD COUNT 4.79 10^6/uL (4.00-5.40)
[2023-03-30 15:57] LABS: FERRITIN 44.5 NG/ML (7.3-270.7)
== END ==
LOC: M PLALAB 13:29
PROVIDERS: ATTEND Physician Assistant Medical
DX: D50.9 Iron deficiency anemia, unspecified (principal)

== ENCOUNTER → 2023-03-30 | Outpatient (CLI) | payer OTHER | LOC: M CARPUL 10:17 | PROVIDERS: ATTEND Physician Assistant Medical | DX: R00.2 Palpitations (principal) ==

== ENCOUNTER 2023-04-13 13:36 | Outpatient (CLI) | payer OTHER ==
[~2023-04-13] VITALS: Ht 170.2 cm; Wt 70.0 kg
[~2023-04-13 13:36] MED LIST changes: +ALBUTEROL SULFATE 2.5MG/0.5ML INH NEB SOLN INH PRN; +EPINEPHrine INJ 1 MG/ML 1ML AMP IM PRN; +IRON SUCROSE 250 MG in NS 237.5 ML IV ONE; +NS 1,000 ML IV SCH; +diphenhydrAMINE 50MG/ML VIAL IV PRN; +methylPREDNISolone 125MG 2ML VIAL IV PRN
[2023-04-13 14:55] VITALS: BP 126/67; O2SAT 100
[2023-04-13 16:13] VITALS: BP 123/69; O2SAT 100
== END 2023-04-13 16:15 ==
LOC: M INFU 13:36
PROVIDERS: ATTEND Physician Assistant Medical
DX: D50.9 Iron deficiency anemia, unspecified (principal); Z88.8 Allergy status to other drugs, medicaments and biological substances
CPT/HCPCS: 96365; 96366; J1756

== ENCOUNTER → 2023-08-27 | Outpatient (CLI) | payer OTHER ==
[~2023-08-27] MED LIST changes: -ALBUTEROL SULFATE 2.5MG/0.5ML INH NEB SOLN INH PRN; -EPINEPHrine INJ 1 MG/ML 1ML AMP IM PRN; -IRON SUCROSE 250 MG in NS 237.5 ML IV ONE; -NS 1,000 ML IV SCH; -diphenhydrAMINE 50MG/ML VIAL IV PRN; -methylPREDNISolone 125MG 2ML VIAL IV PRN
== END ==
LOC: M PLALAB 16:25
PROVIDERS: ATTEND Internal Medicine
DX: K21.9 Gastro-esophageal reflux disease without esophagitis (principal)

== ENCOUNTER → 2023-10-05 | Outpatient (CLI) | payer OTHER ==
[2023-10-05 14:44] LABS: BASO # 0.1 10^3/uL (0.0-0.2); BASO % 0.7 % (0.0-1.0); EOS % 0.3 % (0.0-3.0); HEMATOCRIT 41.7 % (36.0-47.0); HEMOGLOBIN 13.8 g/dl (12.0-15.5); LYMPH # 2.2 10^3/uL (1.5-5.0); LYMPH % 14.7 % (24.0-44.0); MEAN CORPUSCULAR HEMOGLOBIN 29.3 pg (27.0-33.0); MEAN CORPUSCULAR HGB CONC 33.1 g/dl (32.0-36.5); MEAN CORPUSCULAR VOLUME 88.5 fl (80.0-96.0); MONO # 0.9 10^3/uL (0.0-0.8); MONO % 6.4 % (2.0-8.0); NEUTROPHILS # 11.3 10^3/uL (1.5-8.5); NEUTROPHILS % 77.4 % (36.0-66.0); PLATELET COUNT, AUTOMATED 338 10^3/uL (150-450); RED BLOOD COUNT 4.71 10^6/uL (4.00-5.40); WHITE BLOOD COUNT 14.6 10^3/uL (4.0-10.0)
[2023-10-05 15:20] LABS: FERRITIN 57.5 NG/ML (7.3-270.7)
[2023-10-09 13:11] LABS: D001-IgE D pteronyssinus <0.10 kU/L (Class 0); E001-IgE Cat Epith/Dander < 0.10 kU/L (Class 0); E005-IgE Dog Dander < 0.10 kU/L (Class 0); G002-IgE Bermuda Grass < 0.10 kU/L (Class 0); M001-IgE Penicillium chrysogen < 0.10 kU/L (Class 0); M002 IgE Cladosporium herbaru < 0.10 kU/L (Class 0); M003 IgE Aspergillus fumigatu < 0.10 kU/L (Class 0); M006-IgE Alternaria alternata < 0.10 kU/L (Class 0); T001-IgE Maple/Box Elder < 0.10 kU/L (Class 0); T003-IgE Common Silver Birch < 0.10 kU/L (Class 0); T006-IgE Cedar, Mountain < 0.10 kU/L (Class 0); T007-IgE Oak, White < 0.10 kU/L (Class 0); T008-IgE Elm, American < 0.10 kU/L (Class 0); T015-IgE Ash, White < 0.10 kU/L (Class 0); T070-IgE White Mulberry < 0.10 kU/L (Class 0); W001-IgE Ragweed, Short < 0.10 kU/L (Class 0); W018-IgE Sheep Sorrel < 0.10 kU/L (Class 0)
== END ==
LOC: M PLALAB 11:48
PROVIDERS: ATTEND Physician Assistant Medical
DX: J06.9 Acute upper respiratory infection, unspecified (principal); D50.9 Iron deficiency anemia, unspecified; Z91.09 Other allergy status, other than to drugs and biological substances

== ENCOUNTER → 2023-10-06 | Outpatient (CLI) | payer OTHER | LOC: M RAD 10:06 | PROVIDERS: ATTEND Physician Assistant Medical | DX: D72.829 Elevated white blood cell count, unspecified (principal); J40 Bronchitis, not specified as acute or chronic ==

== ENCOUNTER → 2023-11-13 | Outpatient (REF) | payer OTHER ==
[2023-11-13 18:22] LABS: BASO # 0.1 10^3/uL (0.0-0.2); BASO % 0.9 % (0.0-1.0); EOS # 0.1 10^3/uL (0.0-0.5); EOS % 1.3 % (0.0-3.0); HEMATOCRIT 39.6 % (36.0-47.0); HEMOGLOBIN 12.9 g/dl (12.0-15.5); LYMPH # 2.6 10^3/uL (1.5-5.0); MEAN CORPUSCULAR HEMOGLOBIN 29.1 pg (27.0-33.0); MEAN CORPUSCULAR HGB CONC 32.6 g/dl (32.0-36.5); MEAN CORPUSCULAR VOLUME 89.4 fl (80.0-96.0); MONO # 0.7 10^3/uL (0.0-0.8); NEUTROPHILS # 4.5 10^3/uL (1.5-8.5); NEUTROPHILS % 56.4 % (36.0-66.0); PLATELET COUNT, AUTOMATED 314 10^3/uL (150-450); RED BLOOD COUNT 4.43 10^6/uL (4.00-5.40)
[2023-11-13 18:51] LABS: FERRITIN 39.9 NG/ML (7.3-270.7)
[2023-11-16 00:06] LABS: F002-IgE Milk < 0.10 kU/L (Class 0); F004-IgE Wheat < 0.10 kU/L (Class 0); F013-IgE Peanut < 0.10 kU/L (Class 0); F014-IgE Soybean < 0.10 kU/L (Class 0); F026-IgE Pork < 0.10 kU/L (Class 0); F027-IgE Beef < 0.10 kU/L (Class 0); F245-IgE Egg, Whole < 0.10 kU/L (Class 0)
== END ==
LOC: M LABDRAWP 16:58
PROVIDERS: ATTEND Physician Assistant Medical
DX: E61.1 Iron deficiency (principal); K14.6 Glossodynia

== ENCOUNTER → 2023-12-03 | Outpatient (REF) | payer OTHER ==
[~2023-12-03] MED LIST changes: +OMEP10CASR PO; +SUCR1TAB56 PO
== END ==
LOC: M SFHCWAGY 10:20
PROVIDERS: ATTEND Nurse Practitioner Family
DX: R87.610 Atypical squamous cells of undetermined significance on cytologic smear of cervix (ASC-US) (principal)

== ENCOUNTER 2023-12-07 11:52 | Emergency (ER) | payer OTHER ==
[~2023-12-07] VITALS: Ht 167.6 cm; Wt 65.1 kg
[~2023-12-07 11:52] MED LIST changes: -OMEP10CASR PO; -SUCR1TAB56 PO
[2023-12-07] MEDS ORDERED: SUCR1TAB56 PO (11:59)
[2023-12-07] MEDS ORDERED: OMEP10CASR PO (11:59)
[2023-12-07 14:38] LABS: BASO # 0.1 10^3/uL (0.0-0.2); BASO % 0.6 % (0.0-1.0); EOS % 0.2 % (0.0-3.0); HEMOGLOBIN 14.1 g/dl (12.0-15.5); LYMPH # 2.3 10^3/uL (1.5-5.0); LYMPH % 19.1 % (24.0-44.0); MEAN CORPUSCULAR HEMOGLOBIN 29.2 pg (27.0-33.0); MEAN CORPUSCULAR HGB CONC 33.6 g/dl (32.0-36.5); MONO # 0.7 10^3/uL (0.0-0.8); MONO % 5.7 % (2.0-8.0); NEUTROPHILS # 9.1 10^3/uL (1.5-8.5); PLATELET COUNT, AUTOMATED 354 10^3/uL (150-450); RED BLOOD COUNT 4.83 10^6/uL (4.00-5.40); WHITE BLOOD COUNT 12.2 10^3/uL (4.0-10.0)
[2023-12-07 14:39] LABS: RSV AMPLIFICATION NEGATIVE (NEGATIVE)
[2023-12-07 15:07] LABS: C REACTIVE PROTEIN QUANTITATIV < 0.40 MG/DL (<1.0)
[2023-12-07 15:08] LABS: ALBUMIN 4.1 G/DL (3.2-5.2); ALKALINE PHOSPHATASE 78 U/L (46-116); ALT/SGPT 18 U/L (7.0-40); AST/SGOT 13 U/L (<34); BILIRUBIN,DIRECT 0.2 MG/DL (<0.4); BILIRUBIN,TOTAL 0.7 MG/DL (0.3-1.2); BLOOD UREA NITROGEN 9 MG/DL (9-23); CALCIUM LEVEL 8.8 MG/DL (8.5-10.1); CARBON DIOXIDE LEVEL 25 MMOL/L (20-31); CHLORIDE LEVEL 108 MMOL/L (98-107); CREATININE FOR GFR 0.65 MG/DL (0.55-1.30); GLOMERULAR FILTRATION RATE > 60.0 (>60); GLUCOSE, FASTING 96 MG/DL (60-100); SODIUM LEVEL 140 MMOL/L (136-145); TOTAL PROTEIN 7.3 G/DL (5.7-8.2)
[2023-12-07 15:10] LABS: HCG, SERUM QUALITATIVE NEGATIVE (NEGATIVE)
[2023-12-07 15:11] LABS: FREE T4 1.27 NG/DL (0.89-1.76); THYROID STIMULATING HORMONE 1.235 uIU/ML (0.55-4.78)
[2023-12-07 16:17] LABS: ERYTHROCYTE SEDIMENTATION RATE 12 mm/hr (0-20)
[2023-12-07] MEDS: methylPREDNISolone 125MG 2ML VIAL IV ONE (16:33)
[2023-12-07 16:53] VITALS: BP 133/69; TEMP 98; O2SAT 95
== END 2023-12-07 17:03 | disposition home or self-care (01) ==
LOC: M ED 11:52
DX: R06.02 Shortness of breath (principal); K21.9 Gastro-esophageal reflux disease without esophagitis; F41.9 Anxiety disorder, unspecified; Z86.72 Personal history of thrombophlebitis; J30.2 Other seasonal allergic rhinitis; Z79.899 Other long term (current) drug therapy
CPT/HCPCS: 71046; 80048; 80076; 83880; 84439; 84443; 84703; 85025; 85379; 85652; 86140; 87631; 87880; 93005; 96374; 99284; J2930

== ENCOUNTER → 2024-02-19 | Outpatient (CLI) | payer OTHER ==
[~2024-02-19] MED LIST changes: +OMEP10CASR PO; +SUCR1TAB56 PO
[2024-02-19 18:06] LABS: BASO # 0.1 10^3/uL (0.0-0.2); BASO % 1.1 % (0.0-1.0); EOS # 0.1 10^3/uL (0.0-0.5); EOS % 1.4 % (0.0-3.0); HEMATOCRIT 39.7 % (36.0-47.0); HEMOGLOBIN 12.9 g/dl (12.0-15.5); LYMPH # 2.5 10^3/uL (1.5-5.0); LYMPH % 31.6 % (24.0-44.0); MEAN CORPUSCULAR HEMOGLOBIN 28.8 pg (27.0-33.0); MEAN CORPUSCULAR HGB CONC 32.5 g/dl (32.0-36.5); MEAN CORPUSCULAR VOLUME 88.6 fl (80.0-96.0); MONO # 0.8 10^3/uL (0.0-0.8); MONO % 9.7 % (2.0-8.0); NEUTROPHILS # 4.5 10^3/uL (1.5-8.5); NEUTROPHILS % 55.9 % (36.0-66.0); PLATELET COUNT, AUTOMATED 304 10^3/uL (150-450); RED BLOOD COUNT 4.48 10^6/uL (4.00-5.40)
[2024-02-19 18:12] LABS: ERYTHROCYTE SEDIMENTATION RATE 20 mm/hr (0-20)
== END ==
LOC: M PLALAB 15:55
PROVIDERS: ATTEND Internal Medicine Gastroenterology
DX: R13.10 Dysphagia, unspecified (principal); D72.10 Eosinophilia, unspecified

== ENCOUNTER → 2024-02-26 | Outpatient (CLI) | payer OTHER ==
[2024-03-01 23:13] LABS: D001-IgE D pteronyssinus <0.10 kU/L (Class 0); E001-IgE Cat Epith/Dander < 0.10 kU/L (Class 0); E005-IgE Dog Dander < 0.10 kU/L (Class 0); G002-IgE Bermuda Grass < 0.10 kU/L (Class 0); M001-IgE Penicillium chrysogen < 0.10 kU/L (Class 0); M002 IgE Cladosporium herbaru < 0.10 kU/L (Class 0); M003 IgE Aspergillus fumigatu < 0.10 kU/L (Class 0); M006-IgE Alternaria alternata < 0.10 kU/L (Class 0); T001-IgE Maple/Box Elder < 0.10 kU/L (Class 0); T003-IgE Common Silver Birch < 0.10 kU/L (Class 0); T006-IgE Cedar, Mountain < 0.10 kU/L (Class 0); T007-IgE Oak, White < 0.10 kU/L (Class 0); T008-IgE Elm, American < 0.10 kU/L (Class 0); T015-IgE Ash, White < 0.10 kU/L (Class 0); T070-IgE White Mulberry < 0.10 kU/L (Class 0); W001-IgE Ragweed, Short < 0.10 kU/L (Class 0); W018-IgE Sheep Sorrel < 0.10 kU/L (Class 0)
== END ==
LOC: M PLALAB 15:04
PROVIDERS: ATTEND Internal Medicine Gastroenterology
DX: D72.10 Eosinophilia, unspecified (principal); R13.10 Dysphagia, unspecified

== ENCOUNTER → 2024-02-26 | Outpatient (CLI) | payer OTHER ==
[2024-02-26 17:53] LABS: FERRITIN 32.3 NG/ML (7.3-270.7)
== END ==
LOC: M PLALAB 15:08
PROVIDERS: ATTEND Physician Assistant Medical
DX: D50.9 Iron deficiency anemia, unspecified (principal); K21.9 Gastro-esophageal reflux disease without esophagitis; R13.10 Dysphagia, unspecified

== ENCOUNTER → 2024-07-02 | Outpatient (CLI) | payer OTHER ==
[2024-07-02 17:30] LABS: BASO # 0.1 10^3/uL (0.0-0.2); EOS # 0.1 10^3/uL (0.0-0.5); EOS % 0.7 % (0.0-3.0); HEMATOCRIT 38.9 % (36.0-47.0); HEMOGLOBIN 12.7 g/dl (12.0-15.5); LYMPH # 3.6 10^3/uL (1.5-5.0); LYMPH % 29.7 % (24.0-44.0); MEAN CORPUSCULAR HGB CONC 32.6 g/dl (32.0-36.5); MEAN CORPUSCULAR VOLUME 88.8 fl (80.0-96.0); MONO # 0.9 10^3/uL (0.0-0.8); MONO % 7.2 % (2.0-8.0); NEUTROPHILS # 7.3 10^3/uL (1.5-8.5); NEUTROPHILS % 61.1 % (36.0-66.0); PLATELET COUNT, AUTOMATED 332 10^3/uL (150-450); RED BLOOD COUNT 4.38 10^6/uL (4.00-5.40)
[2024-07-02 18:04] LABS: FERRITIN 22.9 NG/ML (7.3-270.7)
== END ==
LOC: M PLALAB 15:44
PROVIDERS: ATTEND Physician Assistant Medical
DX: K21.9 Gastro-esophageal reflux disease without esophagitis (principal)

== ENCOUNTER 2024-07-16 00:46 | Emergency (ER) | payer OTHER ==
[~2024-07-16] VITALS: Ht 167.6 cm; Wt 66.1 kg
[2024-07-16 00:49] VITALS: TEMP 98.6
[2024-07-16 01:25] LABS: BASO # 0.1 10^3/uL (0.0-0.2); BASO % 0.4 % (0.0-1.0); EOS # 0.1 10^3/uL (0.0-0.5); EOS % 0.8 % (0.0-3.0); HEMATOCRIT 37.5 % (36.0-47.0); HEMOGLOBIN 12.4 g/dl (12.0-15.5); LYMPH # 3.2 10^3/uL (1.5-5.0); LYMPH % 28.6 % (24.0-44.0); MEAN CORPUSCULAR HGB CONC 33.1 g/dl (32.0-36.5); MEAN CORPUSCULAR VOLUME 87.8 fl (80.0-96.0); MONO # 0.8 10^3/uL (0.0-0.8); MONO % 7.2 % (2.0-8.0); NEUTROPHILS # 7.1 10^3/uL (1.5-8.5); NEUTROPHILS % 62.6 % (36.0-66.0); PLATELET COUNT, AUTOMATED 274 10^3/uL (150-450); RED BLOOD COUNT 4.27 10^6/uL (4.00-5.40); WHITE BLOOD COUNT 11.3 10^3/uL (4.0-10.0)
[2024-07-16 01:31] VITALS: O2SAT 99
[2024-07-16 01:45] VITALS: BP 141/66
[2024-07-16 01:50] LABS: HCG, SERUM QUALITATIVE NEGATIVE (NEGATIVE)
[2024-07-16 02:13] LABS: ALBUMIN 3.7 G/DL (3.2-5.2); ALKALINE PHOSPHATASE 70 U/L (46-116); ALT/SGPT 23 U/L (7.0-40); AST/SGOT 15 U/L (<34); BILIRUBIN,DIRECT 0.1 MG/DL (<0.4); BILIRUBIN,TOTAL 0.4 MG/DL (0.3-1.2); BLOOD UREA NITROGEN 9 MG/DL (9-23); CALCIUM LEVEL 9.5 MG/DL (8.5-10.1); CARBON DIOXIDE LEVEL 25 MMOL/L (20-31); CHLORIDE LEVEL 109 MMOL/L (98-107); CREATININE FOR GFR 0.72 MG/DL (0.55-1.30); GLOMERULAR FILTRATION RATE > 60.0 (>58); GLUCOSE, FASTING 119 MG/DL (60-100); POTASSIUM SERUM 3.5 MMOL/L (3.5-5.1); SODIUM LEVEL 141 MMOL/L (136-145); TOTAL PROTEIN 6.9 G/DL (5.7-8.2)
[2024-07-16] MEDS: IPRATROPIUM 0.5MG/ALBUTEROL 2.5MG INH SOL UD 3ML (DUONEB) NEB ONE (03:37)
[2024-07-16] MEDS: dexAMETHasone 20MG/5ML VIAL IM ONE (03:46)
[2024-07-16] MEDS: AZITHROMYCIN 250MG TABLET PO ONE (03:47)
[2024-07-16] MEDS ORDERED: PRED20TA PO (04:14)
[2024-07-16] MEDS ORDERED: ZITHTAB PO (04:14)
== END 2024-07-16 04:36 | disposition home or self-care (01) ==
LOC: M ED 00:46
DX: J45.909 Unspecified asthma, uncomplicated (principal); R06.02 Shortness of breath; R00.0 Tachycardia, unspecified; Z91.09 Other allergy status, other than to drugs and biological substances; Z79.51 Long term (current) use of inhaled steroids; Z79.52 Long term (current) use of systemic steroids; Z79.2 Long term (current) use of antibiotics; Z79.810 Long term (current) use of selective estrogen receptor modulators (SERMs); Z79.899 Other long term (current) drug therapy
CPT/HCPCS: 71045; 80048; 80076; 84703; 85025; 87486; 87581; 87633; 87798; 93005; 93041; 94640; 94760; 96372; 99284; J1100

== ENCOUNTER 2024-07-24 08:44 | Outpatient (CLI) | payer OTHER ==
[~2024-07-24] VITALS: Ht 175.3 cm; Wt 65.9 kg
[~2024-07-24 08:44] MED LIST changes: +ALBUTEROL SULFATE 2.5MG/0.5ML INH NEB SOLN INH PRN; +EPINEPHrine INJ 1 MG/ML 1ML AMP IM PRN; +NS 1,000 ML IV SCH; +ZITHTAB PO; +diphenhydrAMINE 50MG/ML VIAL IV PRN; +methylPREDNISolone 125MG 2ML VIAL IV PRN
[2024-07-24 08:50] VITALS: BP 140/62; O2SAT 100
[2024-07-24] MEDS: ACETAMINOPHEN 650MG PO PRIOR TO INFUSION PO ONE (09:07)
[2024-07-24] MEDS: diphenhydrAMINE 25MG PO PRIOR TO INFUSION PO ONE (09:07)
[2024-07-24] MEDS: IRON SUCROSE 300 MG in NS 250 ML OVER 90 MIN. IV ONE (09:46)
[2024-07-24 11:35] VITALS: BP 122/68; O2SAT 99
== END 2024-07-24 11:40 ==
LOC: M INFU 08:44
PROVIDERS: ATTEND Physician Assistant Medical
DX: D50.9 Iron deficiency anemia, unspecified (principal); Z91.09 Other allergy status, other than to drugs and biological substances
CPT/HCPCS: 96365; 96366; J1756

== ENCOUNTER 2024-07-31 11:40 | Outpatient (CLI) | payer OTHER ==
[~2024-07-31] VITALS: Ht 167.6 cm; Wt 65.9 kg
[2024-07-31 11:40] VITALS: BP 131/71; O2SAT 100
[~2024-07-31 11:40] MED LIST changes: +ACETAMINOPHEN 650MG PO PRIOR TO INFUSION PO ONE; +diphenhydrAMINE 25MG PO PRIOR TO INFUSION PO ONE
[2024-07-31] MEDS: IRON SUCROSE 300 MG in NS 250 ML OVER 90 MIN. IV ONE (12:07)
[2024-07-31 13:57] VITALS: BP 128/61; O2SAT 100
== END 2024-07-31 14:00 ==
LOC: M INFU 11:40
PROVIDERS: ATTEND Physician Assistant Medical
DX: D50.9 Iron deficiency anemia, unspecified (principal); Z91.09 Other allergy status, other than to drugs and biological substances
CPT/HCPCS: 96365; 96366; J1756

== ENCOUNTER → 2025-05-12 | Outpatient (REF) | payer OTHER ==
[~2025-05-12] MED LIST changes: -ACETAMINOPHEN 650MG PO PRIOR TO INFUSION PO ONE; -ALBUTEROL SULFATE 2.5MG/0.5ML INH NEB SOLN INH PRN; -EPINEPHrine INJ 1 MG/ML 1ML AMP IM PRN; -NS 1,000 ML IV SCH; -diphenhydrAMINE 25MG PO PRIOR TO INFUSION PO ONE; -diphenhydrAMINE 50MG/ML VIAL IV PRN; -methylPREDNISolone 125MG 2ML VIAL IV PRN
== END ==
LOC: M SFHCDERM 08:39
PROVIDERS: ATTEND Nurse Practitioner Family
DX: D22.39 Melanocytic nevi of other parts of face (principal)

== ENCOUNTER → 2025-07-08 | Outpatient (REF) | payer OTHER ==
[2025-07-10 15:46] LABS: HPV APTIMA Not Detected (Not Detected)
== END ==
LOC: M PLALAB 14:28
PROVIDERS: ATTEND Nurse Practitioner Family
DX: Z12.4 Encounter for screening for malignant neoplasm of cervix (principal)

== ENCOUNTER → 2025-08-07 | Outpatient (CLI) | payer OTHER ==
[2025-08-07 17:19] LABS: BASO # 0.1 10^3/uL (0.0-0.2); BASO % 0.9 % (0.0-1.0); EOS # 0.1 10^3/uL (0.0-0.5); EOS % 1.1 % (0.0-3.0); LYMPH # 2.6 10^3/uL (1.5-5.0); LYMPH % 25.1 % (24.0-44.0); MONO # 0.8 10^3/uL (0.0-0.8); MONO % 7.5 % (2.0-8.0); NEUTROPHILS # 6.8 10^3/uL (1.5-8.5); NEUTROPHILS % 64.9 % (36.0-66.0); PLATELET COUNT, AUTOMATED 353 10^3/uL (150-450)
[2025-08-07 17:31] LABS: IRON (FE) 62 UG/DL (50-170)
[2025-08-07 17:32] LABS: ALT/SGPT 16 U/L (7.0-40); AST/SGOT 15 U/L (<34); CALCIUM LEVEL 9.1 MG/DL (8.5-10.1); CARBON DIOXIDE LEVEL 30 MMOL/L (20-31); CHLORIDE LEVEL 102 MMOL/L (98-107); CHOLESTEROL LEVEL 174 MG/DL (<200); CHOLESTEROL RISK RATIO 3.05 (<5); CREATININE FOR GFR 0.77 MG/DL (0.55-1.30); GLOMERULAR FILTRATION RATE > 90.0 (>58); LDL CHOLESTEROL 91.3 MG/DL (<100); NON-HDL-C 117.1 MG/DL; POTASSIUM SERUM 4.3 MMOL/L (3.5-5.1); SODIUM LEVEL 140 MMOL/L (136-145); TRIGLYCERIDES LEVEL 129 MG/DL (<150)
[2025-08-07 17:34] LABS: FREE T4 1.25 NG/DL (0.89-1.76)
[2025-08-07 18:08] LABS: ESTIMATED AVERAGE GLUCOSE 120.0 MG/DL (60-110)
== END ==
LOC: M PLALAB 14:40
PROVIDERS: ATTEND Physician Assistant Medical
DX: Z00.00 Encounter for general adult medical examination without abnormal findings (principal); R45.86 Emotional lability; K21.9 Gastro-esophageal reflux disease without esophagitis; Z13.1 Encounter for screening for diabetes mellitus; Z13.220 Encounter for screening for lipoid disorders; J30.9 Allergic rhinitis, unspecified; D50.9 Iron deficiency anemia, unspecified

== ENCOUNTER → 2025-09-04 | Outpatient (CLI) | payer OTHER | LOC: M SLEEP HO 12:21 | PROVIDERS: ATTEND Physician Assistant Medical | DX: R06.83 Snoring (principal) ==

== ENCOUNTER → 2025-09-29 | Outpatient (CLI) | payer OTHER | LOC: M WHC 12:38 | PROVIDERS: ATTEND Nurse Practitioner Family | DX: Z12.31 Encounter for screening mammogram for malignant neoplasm of breast (principal); R92.333 Mammographic heterogeneous density, bilateral breasts ==